=== PATIENT | male | born 1965 | race Two or more races ===

== ENCOUNTER → 2020-05-06 09:09 | Outpatient (BNVA) | payer OTHER, SELFPAY | PROVIDERS: PCP Internal Medicine; Visit Provider Internal Medicine Gastroenterology | DX: K21.9 Gastro-esophageal reflux disease without esophagitis (principal) | CPT/HCPCS: Q3014 ==

== ENCOUNTER → 2020-07-15 09:19 | Outpatient (BNVA) | payer OTHER, SELFPAY | PROVIDERS: PCP Internal Medicine; Visit Provider Internal Medicine Gastroenterology | DX: Z76.89 Persons encountering health services in other specified circumstances (principal) | CPT/HCPCS: Q3014 ==

== ENCOUNTER 2020-07-23 09:21 | Outpatient (REF) | payer OTHER, SELFPAY | END 2020-07-23 09:22 | disposition home or self-care (01) | LOC: HO.LAB 09:21 | PROVIDERS: Visit Provider Internal Medicine | DX: Z20.822 Contact with and (suspected) exposure to COVID-19 (principal) | CPT/HCPCS: 36415; C9803; U0003; U0005 ==

== ENCOUNTER 2020-08-24 09:29 | Outpatient (REF) | payer OTHER, SELFPAY | END 2020-08-24 09:30 | disposition home or self-care (01) | LOC: HO.LAB 09:29 | PROVIDERS: Visit Provider Internal Medicine | DX: Z20.822 Contact with and (suspected) exposure to COVID-19 (principal) | CPT/HCPCS: 36415; C9803; U0003; U0005 ==

== ENCOUNTER 2020-08-31 17:54 | Emergency (ER) | payer OTHER, SELFPAY ==
--- NOTE | ~2020-08-31 | CT_ITS ---
EXAMINATION: CT ABDOMEN AND PELVIS WITH CONTRAST CLINICAL INFORMATION: Left lower quadrant pain. COMPARISON: 09/18/2006. TECHNIQUE: Contiguous axial thin section helical images of the abdomen and pelvis were performed following the administration of 75 mL of intravenous Omnipaque 350. The data set was reformatted in the coronal and sagittal planes and reviewed on an independent workstation. DLP: 655 mGy-cm. FINDINGS: The visualized lung bases are clear. The visualized portions of the heart are unremarkable. The liver is of normal size and attenuation without focal lesions nor intrahepatic biliary ductal dilation. A normal gallbladder is identified. There is no wall thickening or discernible pericholecystic fluid. The spleen, pancreas, adrenal glands are unremarkable. Both kidneys are of normal size and attenuation without hydronephrosis or nephrolithiasis. Following the administration of IV contrast, prompt symmetric nephrograms are displayed. There is no abdominal free fluid. There is neither mesenteric nor retroperitoneal lymphadenopathy. There are scattered sigmoid diverticula without evidence of diverticulitis; otherwise, unremarkable unopacified loops of small and large bowel are identified. A normal appendix is present. There is no pelvic free fluid. The urinary bladder is unremarkable. There is neither pelvic nor inguinal lymphadenopathy. Bone windows: Neither sclerotic nor lytic bone lesions are identified. CT/CT abdomen pelvis w con IMPRESSION: No acute abdominal or pelvic inflammatory or infectious processes. Automated exposure control (Care Dose) Adjustment of the mA and/or kv according to patient size (this includes techniques or standardized protocols for targeted exams where dose is matched to indication / reason for exam; i.e. extremities or head).
[2020-08-31 18:43] VITALS: BP 181/112; PULSE 93; RESP 18; TEMP 37.2; O2SAT 98; BMI 30.1
[2020-08-31 21:25] LABS: MANUAL DIFF FLAG NO
[2020-08-31 21:29] LABS: Basophils Percent Auto 0.4 % (0-2); Eosinophils Absolute Auto 0.3 X10*3/uL (0.0-0.4); Eosinophils Percent Auto 2.7 % (0-4); Hematocrit 47.5 % (42-52); Hemoglobin 16.6 g/dl (14.0-18.0); Imm Gran Abs Auto 0.07 X10*3/uL (0.00-0.03); Imm Gran Pct Auto 0.6 % (0.0-0.4); Lymphocytes Absolute Auto 2.4 X10*3/uL (1.2-4.9); Lymphocytes Percent Auto 22.2 % (20-40); Mean Corpuscular HGB Conc 34.9 g/dl (31.0-36.0); Mean Corpuscular Hemoglobin 29.9 pg (27.0-33.0); Mean Corpuscular Volume 85.4 fL (80-98); Mean Platelet Volume 10.1 fL (9.4-12.4); Monocytes Absolute Auto 0.4 X10*3/uL (0.1-1.2); Neutrophils Absolute Auto 7.7 X10*3/uL (2.0-8.3); Neutrophils Percent Auto 70.1 % (45-73); Platelet Count 269 X10*3/uL (160-400); Red Blood Count 5.56 X10*6/uL (4.60-5.80); Red Cell Distribution Width 12.2 % (11.0-16.0); White Blood Count 10.9 X10*3/uL (4.8-10.8)
[2020-08-31 21:45] LABS: Alanine Aminotransferase 55 U/L (0-40); Albumin Level 4.4 g/dL (3.5-5.0); Alkaline Phosphatase 126 U/L (39-117); Anion Gap 17 (12-20); Aspartate Amino Transferase 26 U/L (5-37); Bilirubin Total 0.6 mg/dL (0.0-1.0); Blood Urea Nitrogen 18 mg/dL (9-16); Carbon Dioxide 20 mmol/L (22-29); Chloride 107 mmol/L (96-108); Creatinine Clr Calc Pharmacy 85.1; Estimated Glomerular Filt Rate > 60; Glucose Random 125 mg/dL (60-115); Potassium 4.1 mmol/L (3.3-5.1); Sodium 140 mmol/L (135-145); Total Protein 7.3 g/dL (6.5-8.0)
--- NOTE | 2020-08-31 23:49 | ED_ITS ---
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 He denies any accidents in his underwear and denies any urinary symptoms, fevers, chills, nausea, vomiting. Patient denies any anticoagulation. Related Data Previous Rx's Medication Instructions Recorded omeprazole 20 mg capsule,delayed 20 mg PO DAILY 30 Days #30 cap MDD 05/06/20 release 2 lisinopril 20 mg tablet 20 mg PO DAILY #90 tab 07/20/20 Allergies Allergy/AdvReac Type Severity Reaction Status Date / Time No Known Allergies Allergy Unverified 02/20/20 15:57 Review of Systems Review of Systems Pertinent positives and negatives as stated in HPI 10 point review of symptoms is otherwise negative. Physical Exam Vital Signs: Vital Signs: Last Vital Signs Temp 98.1 F 09/01/20 00:00 Pulse 79 09/01/20 00:00 Resp 16 09/01/20 00:00 BP 159/97 H 09/01/20 00:00 Pulse Ox 95 09/01/20 00:00 Body Mass Index 30.1 VITAL SIGNS: Reviewed. GENERAL: Well developed, well nourished, in no acute distress. HEAD: Normocephalic/atraumatic, EYES: PERRLA, EOMI intact without pain, no nystagmus/pallor OROPHARYNX: no oral lesions noted, posterior pharynx clear NECK: Supple, no adenopathy LUNGS: Normal breath sounds. No adventitious sounds or accessory muscle use. SpO2<98> CARDIOVASCULAR: Regular rate and rhythm without noted murmurs ABDOMEN: Soft, tenderness at left lower quadrant without rebound, non-distended with bowel sounds. NEUROLOGIC: Alert and oriented x 4. Course Course Course Narrative: This is a 55-year-old male with history and clinical presentation consistent with likely hemorrhoidal bleeding and possible component of diverticulitis. On review of all investigations patient does not have evidence of anemia, stool is guaiac negative, and CT scan is negative for any acute findings. All results and findings were discussed with patient at bedside and he was discharged home in stable condition with instructions to follow-up with his primary care provider. MDM - Abdominal Pain Lab Data Result diagrams: 08/31/20 21:17 08/31/20 21:17 Labs: Lab Results 08/31/20 08/31/20 08/31/20 Range/Units 21:17 21:17 21:17 WBC 10.9 H (4.8-10.8) X10*3/uL RBC 5.56 (4.60-5.80) X10*6/uL Hgb 16.6 (14.0-18.0) g/dl Hct 47.5 (42-52) % MCV 85.4 (80-98) fL MCH 29.9 (27.0-33.0) pg MCHC 34.9 (31.0-36.0) g/dl RDW 12.2 (11.0-16.0) % Plt Count 269 (160-400) X10*3/uL MPV 10.1 (9.4-12.4) fL Immature Gran % (Auto) 0.6 H (0.0-0.4) % Neut % (Auto) 70.1 (45-73) % Lymph % (Auto) 22.2 (20-40) % Tripp % (Auto) 4.0 (2-11) % Eos % (Auto) 2.7 (0-4) % Baso % (Auto) 0.4 (0-2) % Lymph # (Auto) 2.4 (1.2-4.9) X10*3/uL Tripp # (Auto) 0.4 (0.1-1.2) X10*3/uL Eos # (Auto) 0.3 (0.0-0.4) X10*3/uL Baso # (Auto) 0.0 (0.0-0.2) X10*3/uL Abs Immat Gran (auto) 0.07 H (0.00-0.03) X10*3/uL Absolute Neuts (auto) 7.7 (2.0-8.3) X10*3/uL Absolute Nucleated RBC 0.000 (0.0-0.012) X10*3/uL Nucleated RBC % (auto) 0.0 (0.0-0.2) /100WBC Hold Purple Top SEE NOTE Hold Blue Top SEE NOTE Sodium (135-145) mmol/L Potassium (3.3-5.1) mmol/L Chloride (96-108) mmol/L Carbon Dioxide (22-29) mmol/L Anion Gap (12-20) BUN (9-16) mg/dL Creatinine (0.5-1.4) mg/dL Estim Creat Clear Calc Estimated GFR Random Glucose (60-115) mg/dL Calcium (8.4-10.2) mg/dL Total Bilirubin (0.0-1.0) mg/dL AST (5-37) U/L ALT (0-40) U/L Alkaline Phosphatase (39-117) U/L Total Protein (6.5-8.0) g/dL Albumin (3.5-5.0) g/dL Stool Occult Blood (NEGATIVE) 08/31/20 09/01/20 Range/Units 21:17 00:11 WBC (4.8-10.8) X10*3/uL RBC (4.60-5.80) X10*6/uL Hgb (14.0-18.0) g/dl Hct (42-52) % MCV (80-98) fL MCH (27.0-33.0) pg MCHC (31.0-36.0) g/dl RDW (11.0-16.0) % Plt Count (160-400) X10*3/uL MPV (9.4-12.4) fL Immature Gran % (Auto) (0.0-0.4) % Neut % (Auto) (45-73) % Lymph % (Auto) (20-40) % Tripp % (Auto) (2-11) % Eos % (Auto) (0-4) % Baso % (Auto) (0-2) % Lymph # (Auto) (1.2-4.9) X10*3/uL Tripp # (Auto) (0.1-1.2) X10*3/uL Eos # (Auto) (0.0-0.4) X10*3/uL Baso # (Auto) (0.0-0.2) X10*3/uL Abs Immat Gran (auto) (0.00-0.03) X10*3/uL Absolute Neuts (auto) (2.0-8.3) X10*3/uL Absolute Nucleated RBC (0.0-0.012) X10*3/uL Nucleated RBC % (auto) (0.0-0.2) /100WBC Hold Purple Top Hold Blue Top Sodium 140 (135-145) mmol/L Potassium 4.1 (3.3-5.1) mmol/L Chloride 107 (96-108) mmol/L Carbon Dioxide 20 L (22-29) mmol/L Anion Gap 17 (12-20) BUN 18 H (9-16) mg/dL Creatinine 0.88 (0.5-1.4) mg/dL Estim Creat Clear Calc 85.1 Estimated GFR > 60 Random Glucose 125 H (60-115) mg/dL Calcium 9.0 (8.4-10.2) mg/dL Total Bilirubin 0.6 (0.0-1.0) mg/dL AST 26 (5-37) U/L ALT 55 H (0-40) U/L Alkaline Phosphatase 126 H (39-117) U/L Total Protein 7.3 (6.5-8.0) g/dL Albumin 4.4 (3.5-5.0) g/dL Stool Occult Blood NEGATIVE (NEGATIVE) Discharge Plan Discharge Clinical Impression: Rectal bleeding Abdominal pain Qualifiers: Abdominal location: left lower quadrant Qualified Code(s): R10.32 - Left lower quadrant pain Hemorrhoids Qualifiers: Hemorrhoid type: unspecified Qualified Code(s): K64.9 - Unspecified hemorrhoids Patient Disposition: Home, Self-Care Instructions: Abdominal Pain (ED), Hemorrhoids (ED), Rectal Bleeding (ED) Additional Instructions: No dude en volver al servicio de urgencias por cualquier empeoramiento lesly de danielle s?ntomas. Supriya un seguimiento con kulkarni m?dico dentro de los pr?ximos 1-2 d?as para mazin reevaluaci?n y discusi?n para mazin posible derivaci?n de gastroenterolog?a. Prescriptions: No Action lisinopril 20 mg tablet 20 mg PO DAILY Qty: 90 RF: 8 omeprazole 20 mg capsule,delayed release(DR/EC) 20 mg PO DAILY MDD 2 30 Days Qty: 30 RF: 5 Referrals: Reed Fung MD [Primary Care Provider] - 2 days (Re-evaluation and out patient management for suspected hemorrhoidal bleeding, workup in the emergency department was otherwise negative.) Print Language: Bel[place]ian [facility] Past Medical History Source: nursing notes reviewed Medical History Alopecia COVID-19 GERD (gastroesophageal reflux disease) Hypertension Rotator cuff (capsule) sprain Surgical History History of back surgery History of colonoscopy History of esophagogastroduodenoscopy (EGD) Family History Family History Father Family history of high blood pressure Hx of type 1 diabetes mellitus Mother Hx of multiple sclerosis Family history of high blood pressure Social History Social History Household Members: Significant Other Housing: House Alcohol intake: never Smoking Status: Never smoker Advance Directives: No Current occupational status: disabled
[2020-09-01] VITALS: BP 159/97; PULSE 79; RESP 16; TEMP 36.7; O2SAT 95
--- NOTE | 2020-09-01 00:27 | PC.NURSE ---
20g IV access established in right AC. Pt is COVID+ as of 08/24/20.
[2020-09-01 00:30] LABS: OBS Int Ctl Valid YES; OBS1 NEGATIVE (NEGATIVE)
[2020-09-01] MEDS: iohexoL 350 MG/ML 75 ML INFUS..BTL IV (00:47)
[2020-09-01] MEDS: 0.9 % Sodium Chloride 1,000 ML 999 ML IV (02:02)
[2020-09-01 02:26] LABS: Glucose Urine UA NEG (NEG); Leukocyte Esterase Urine NEG (NEG); Nitrite Urine NEG (NEG); Urine Blood NEG (NEG); Urine Ketones NEG (NEG); Urine Protein NEG (NEG-TRACE)
[2020-09-01 02:27] LABS: Appearance Urine CLEAR; Color Urine STRAW; UACC Culture Trigger NO
== END 2020-09-01 03:49 | disposition home or self-care (01) ==
PROVIDERS: Emergency Provider Student in an Organized Health Care Education/Training Program; PCP Internal Medicine
DX: R10.32 Left lower quadrant pain (principal); K62.5 Hemorrhage of anus and rectum; K64.9 Unspecified hemorrhoids
CPT/HCPCS: 36415; 74177; 80053; 81003; 82272; 85025; 96360; 99283; 99284; Q9967

== ENCOUNTER 2021-07-05 14:28 | Emergency (ER) | payer OTHER, SELFPAY ==
--- NOTE | ~2021-07-05 | XR_ITS ---
EXAMINATION: XR RIBS, LEFT CLINICAL INFORMATION: Fall. Question of sixth rib fracture. COMPARISON: None TECHNIQUE: 3 views of the left ribs were obtained. FINDINGS: There is no displaced rib fracture. Ribs are intact. No airspace disease or pleural effusion or pneumothorax involving the left hemithorax XR/XR ribs LT 2V IMPRESSION: No acute abnormality of left ribs.
--- NOTE | ~2021-07-05 | XR_ITS ---
EXAMINATION: XR CHEST CLINICAL INFORMATION: Chest pain COMPARISON: Previous chest x-ray September 2018 TECHNIQUE: 2 views of the chest were obtained. FINDINGS: The cardiac and mediastinal contours are normal. There is bilateral hilar lymphadenopathy. This is a new finding compared to September 2018 exam. The lungs are clear. There is no pleural effusion. There are degenerative changes of the spine. XR/XR chest 2V IMPRESSION: Bilateral hilar lymphadenopathy. This is a new finding compared to previous chest x-ray from 2019.
[2021-07-05 15:19] VITALS: BP 160/101; PULSE 116; RESP 18; TEMP 36.6; O2SAT 96; BMI 31.8
--- NOTE | 2021-07-05 15:23 | ECG_ITS ---
Test Reason : CP Blood Pressure : / mmHG Vent. Rate : 110 BPM Atrial Rate : 110 BPM P-R Int : 130 ms QRS Dur : 084 ms QT Int : 328 ms P-R-T Axes : 047 077 035 degrees QTc Int : 443 ms Sinus tachycardia Otherwise normal ECG When compared with ECG of 26-JUN-2017 22:50, No significant change was found Referred By: Generic ED Physician Electronically Signed By:CINDY VELASCO
--- NOTE | 2021-07-05 19:45 | ED_ITS ---
HPI - Chest Pain General Chief Complaint: Chest Pain Stated Complaint: fall Time Seen by Provider: 07/05/21 19:45 Source: patient Mode of arrival: ambulatory Limitations: no limitations History of Present Illness HPI narrative: Ability patient had a mechanical fall 3 weeks ago landed on his chest with fist in between since then pain increases on deep inspiration no shortness of breath no cough no other injury Related Data Previous Rx's Medication Instructions Recorded omeprazole 20 mg capsule,delayed 20 mg PO DAILY 30 Days #30 cap MDD 05/06/20 release 2 lisinopril 20 mg tablet 20 mg PO DAILY #90 tab 07/20/20 Allergies Allergy/AdvReac Type Severity Reaction Status Date / Time No Known Allergies Allergy Verified 05/18/21 13:32 Review of Systems Verdana 4l Review of Systems: Yes all other systems are reviewed and Verdana 4d are negative [facility] Past Medical History Medical History Alopecia COVID-19 GERD (gastroesophageal reflux disease) Hypertension Hypertension Rotator cuff (capsule) sprain Surgical History History of back surgery History of colonoscopy History of esophagogastroduodenoscopy (EGD) Family History Family History Father Family history of high blood pressure Hx of type 1 diabetes mellitus Mother Hx of multiple sclerosis Family history of high blood pressure Social History Social History Household Members: Significant Other Housing: House Alcohol intake: never Patient Tobacco Use Status: Never used Tobacco e-Cigarette/Vaping Use: Never Used Second Hand Smoke Exposure: No Advance Directives: No Advance Directives Information Provided: No Current occupational status: disabled Physical Exam Verdana 4l Vital Signs: Verdana 4d Verdana 4d Vital Signs: Verdana 4d Verdana 4Bd Last Vital Signs Verdana 4d 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 Local tenderness on the 6th rib in the front Resp: Effort & Inspection: normal respiratory effort and able to speak in complete sentences Auscultation: clear to auscultation bilaterally Cardio: Palpation: normal PMI Rate: regular rate Rhythm: regular rhythm Heart sounds: S1 normal heart sound present and S2 normal heart sound present GI: Inspection: Yes normal to inspection Palpation (GI): Soft to palpation and nontender Neuro: General: patient oriented x3 Discharge Plan Discharge Clinical Impression: Fracture of rib Patient Disposition: Home, Self-Care Prescriptions: No Action lisinopril 20 mg tablet 20 mg PO DAILY Qty: 90 8RF omeprazole 20 mg capsule,delayed release(DR/EC) 20 mg PO DAILY MDD 2 30 Days Qty: 30 5RF
[2021-07-05 19:46] VITALS: BP 162/100; PULSE 98; RESP 18; TEMP 37; O2SAT 97
[2021-07-05] MEDS: Ketorolac Tromethamine 30 MG/ML VIAL IM (20:20)
== END 2021-07-05 21:12 | disposition home or self-care (01) ==
PROVIDERS: Emergency Provider Internal Medicine; PCP Internal Medicine
DX: S22.32XA Fracture of one rib, left side, initial encounter for closed fracture (principal); W01.198A Fall on same level from slipping, tripping and stumbling with subsequent striking against other object, initial encounter; Y93.9 Activity, unspecified; Y92.9 Unspecified place or not applicable; Y99.9 Unspecified external cause status
CPT/HCPCS: 71046; 71100; 93005; 96372; 99284; J1885

== ENCOUNTER 2021-07-21 10:48 | Outpatient (REF) | payer OTHER, SELFPAY ==
[2021-07-21 11:58] LABS: MANUAL DIFF FLAG NO
[2021-07-21 12:12] LABS: Basophils Percent Auto 0.6 % (0-2); Eosinophils Absolute Auto 0.3 X10*3/uL (0.0-0.4); Eosinophils Percent Auto 4.7 % (0-4); Hematocrit 49.7 % (42.0-52.0); Hemoglobin 16.9 g/dl (14.0-18.0); Imm Gran Abs Auto 0.04 X10*3/uL (0.00-0.03); Imm Gran Pct Auto 0.6 % (0.0-0.4); Lymphocytes Absolute Auto 1.5 X10*3/uL (1.2-4.9); Lymphocytes Percent Auto 22.5 % (20-40); Mean Corpuscular Hemoglobin 29.6 pg (27.0-33.0); Mean Corpuscular Volume 87.2 fL (80.0-98.0); Mean Platelet Volume 9.8 fL (9.4-12.4); Monocytes Absolute Auto 0.5 X10*3/uL (0.1-1.2); Monocytes Percent Auto 7.9 % (2-11); Neutrophils Absolute Auto 4.2 x10*3/uL (2.0-8.3); Neutrophils Percent Auto 63.7 % (45-73); Platelet Count 273 X10*3/uL (160-400); Red Cell Distribution Width 12.8 % (11.0-16.0); White Blood Count 6.6 X10*3/uL (4.8-10.8)
[2021-07-21 12:43] LABS: Alanine Aminotransferase 23 U/L (0-40); Albumin Level 4.6 g/dL (3.5-5.0); Alkaline Phosphatase 129 U/L (39-117); Anion Gap 13 (12-20); Aspartate Amino Transferase 23 U/L (5-37); Bilirubin Total 0.6 mg/dL (0.0-1.0); Blood Urea Nitrogen 15 mg/dL (9-16); Calcium 10.4 mg/dL (8.4-10.2); Carbon Dioxide 28 mmol/L (22-29); Chloride 104 mmol/L (96-108); Cholesterol 220 mg/dL; Estimated Glomerular Filt Rate > 60; Glucose Fasting 100 mg/dL (60-99); HDL Cholesterol 42 mg/dL; LDL Cholesterol Calculated 142 mg/dl; Potassium 4.9 mmol/L (3.3-5.1); Sodium 140 mmol/L (135-145); Triglycerides 180 mg/dL
[2021-07-21 13:04] LABS: TSH reflex Free T4 0.87 uIU/mL (0.32-4.0); Thyroid Stimulating Hormone 0.87 uIU/mL (0.32-4.0)
[2021-07-21 13:20] LABS: Folate 4.5 ng/mL (> or = 4.0); Vitamin B12 256 pg/mL (200-900)
[2021-07-21 14:00] LABS: H Pylori Breath Test Negative (Negative)
[2021-07-26 15:02] LABS: Vitamin D 25-OH, D2 <4 ng/mL; Vitamin D 25-OH, D3 19 ng/mL; Vitamin D 25-OH, Total 19 ng/mL (30-100)
== END 2021-07-21 10:49 | disposition home or self-care (01) ==
LOC: HO.LAB 10:48
PROVIDERS: PCP Internal Medicine; Referring Provider Internal Medicine; Visit Provider Nurse Practitioner Family
DX: Z00.00 Encounter for general adult medical examination without abnormal findings (principal); Z13.0 Encounter for screening for diseases of the blood and blood-forming organs and certain disorders involving the immune mechanism; K21.9 Gastro-esophageal reflux disease without esophagitis; K59.01 Slow transit constipation; R14.0 Abdominal distension (gaseous); K64.9 Unspecified hemorrhoids; E55.9 Vitamin D deficiency, unspecified; R19.7 Diarrhea, unspecified
CPT/HCPCS: 36415; 80053; 80061; 82306; 82607; 82746; 83013; 84443; 85025; 99212

== ENCOUNTER 2021-07-28 08:36 | Outpatient (REF) | payer OTHER, SELFPAY ==
--- NOTE | 2021-07-28 08:39 | EMG_ITS ---
This is a 56-year-old man with history of bilateral hand pain and numbness for several years with the right being worse than the left. PHYSICAL EXAMINATION: On examination, he is alert and oriented with normal intellectual functions. His cranial nerves II through XII are normal. There is no Tinel or Phalen sign. IMPRESSION: Carpal tunnel syndrome. Nerve conduction EMG study: Mild carpal tunnel syndrome bilaterally, slightly worse in the right. Normal EMG of the right C5-T1 innervated muscles. MD ABEL Baldwin/FRANCINE / [id number]
== END 2021-07-28 08:37 | disposition home or self-care (01) ==
LOC: HO.NEURO 08:36
PROVIDERS: PCP Internal Medicine; Visit Provider Internal Medicine
DX: G56.00 Carpal tunnel syndrome, unspecified upper limb (principal)
CPT/HCPCS: 95885; 95913

== ENCOUNTER → 2021-10-13 09:16 | Outpatient (BNVA) | payer OTHER, SELFPAY | PROVIDERS: PCP Internal Medicine; Referring Provider Internal Medicine; Visit Provider Nurse Practitioner Family | DX: K21.9 Gastro-esophageal reflux disease without esophagitis (principal); K58.1 Irritable bowel syndrome with constipation | CPT/HCPCS: 99212 ==

== ENCOUNTER 2021-12-09 07:25 | Outpatient (REF) | payer OTHER, SELFPAY ==
[2021-12-09 09:28] LABS: Cholesterol 215 mg/dL; HDL Cholesterol 49 mg/dL; LDL Cholesterol Calculated 151 mg/dl; Triglycerides 75 mg/dL
== END 2021-12-09 07:26 | disposition home or self-care (01) ==
LOC: HO.LAB 07:25
PROVIDERS: PCP Internal Medicine; Visit Provider Internal Medicine
DX: Z00.00 Encounter for general adult medical examination without abnormal findings (principal); Z13.220 Encounter for screening for lipoid disorders
CPT/HCPCS: 36415; 80061

== ENCOUNTER → 2022-04-14 08:47 | Outpatient (BNVA) | payer OTHER, SELFPAY | PROVIDERS: PCP Internal Medicine; Visit Provider Nurse Practitioner Family | DX: K58.9 Irritable bowel syndrome, unspecified (principal); K21.9 Gastro-esophageal reflux disease without esophagitis | CPT/HCPCS: 99212 ==

== ENCOUNTER 2022-06-13 08:50 | Outpatient (REF) | payer OTHER, SELFPAY ==
--- NOTE | ~2022-06-13 | XR_ITS ---
EXAMINATION: XR SHOULDER, LEFT CLINICAL INFORMATION: Left shoulder pain. COMPARISON: 12/19/2017 chest radiographs. TECHNIQUE: Views of the left shoulder. FINDINGS: Mild left acromioclavicular degenerative joint changes are seen. There is no acute fracture or dislocation. The left glenohumeral joint is unremarkable. The visualized left ribs are intact. The soft tissues are unremarkable. XR/XR shoulder LT min 2V IMPRESSION: Mild left acromioclavicular degenerative joint changes. No acute fracture.
--- NOTE | ~2022-06-13 | XR_ITS ---
EXAMINATION: XR SHOULDER, RIGHT CLINICAL INFORMATION: Right shoulder COMPARISON: 12/19/2017 chest radiographs. TECHNIQUE: Views of the left shoulder. FINDINGS: Mild left acromioclavicular degenerative joint changes are seen. There is no acute fracture or dislocation. The left glenohumeral joint is unremarkable. The visualized left ribs are intact. The soft tissues are unremarkable. XR/XR shoulder RT min 2V IMPRESSION: Mild right acromioclavicular degenerative joint changes. No acute fracture.
== END 2022-06-13 08:51 | disposition home or self-care (01) ==
LOC: HO.HOSX 08:50
PROVIDERS: Visit Provider Orthopaedic Surgery
DX: M25.311 Other instability, right shoulder (principal); M25.512 Pain in left shoulder
CPT/HCPCS: 20610; 73030; 99202; J1100

== ENCOUNTER 2022-06-29 08:35 | Outpatient (REF) | payer OTHER, SELFPAY ==
--- NOTE | ~2022-06-29 | MR_ITS ---
EXAMINATION: MR SHOULDER WITHOUT CONTRAST, RIGHT CLINICAL INFORMATION: Instability COMPARISON: X-ray 06/13/2022 TECHNIQUE: MRI of the shoulder without contrast was performed on a high-field scanner. FINDINGS: ROTATOR CUFF: There is a tear of the supraspinatus measuring 3 x 3.4 cm. (AP x ML) there is a combination of high-grade and full-thickness tearing. Moderate infraspinatus tendinosis. Linear intrasubstance tear in the proximal tendon/myotendinous region measuring 1.2 x 0.6 cm (AP x ML). Teres minor muscle atrophy. There is a fatty infiltration of the deltoid muscle. BICEPS: Moderate biceps tendinosis and partial tearing. CORACOACROMIAL ARCH: The undersurface of the acromion is curved with lateral downsloping, mild subacromial spurring.. Mild-moderate acromioclavicular arthritis.. LABRUM/CAPSULE: Superior labral degeneration, with the T2 bright signal raising concern for associated tear. Posterosuperior labral degenerative fraying/tear. GLENOHUMERAL JOINT/MARROW: No fracture. Degenerative spurring in the greater tuberosity. Foci of mild humeral head cartilage thinning suggesting mild arthritis. Small effusion, communicating with the subacromial subdeltoid space. MR/MR shoulder RT wo con IMPRESSION: 1. Supraspinatus tear measuring 3 x 3.4 cm. Tear is a combination of high-grade and full-thickness tearing. 2. Moderate infraspinatus tendinosis. 1.2 x 0.6 cm intrasubstance tear. 3. Moderate biceps tendinosis and partial tearing. 4. Superior labral degeneration with possible tear.. Posterosuperior labral degenerative fraying/tear. 5. Mild glenohumeral joint arthritis. Small effusion. 6. Mild-moderate acromioclavicular arthritis.
--- NOTE | ~2022-06-29 | XR_ITS ---
EXAMINATION: XR PRE-MRI SCREENING CLINICAL INFORMATION: Prior to MRI. Question foreign body. COMPARISON: None TECHNIQUE: Frontal view of the pelvis. FINDINGS: No fracture or dislocation. Alignment maintained of the hips. Subchondral sclerosis of both hips. The sacroiliac joints and pubic symphysis are well aligned. Normal bowel gas pattern. No unexpected radiopaque foreign body. Calcification noted along the penis. XR/XR pre mri screening IMPRESSION: 1. No unexpected radiopaque foreign body. 2. Mild degenerative changes of the hips.
== END 2022-06-29 08:36 | disposition home or self-care (01) ==
LOC: HO.MRI 08:35
PROVIDERS: PCP Internal Medicine; Visit Provider Orthopaedic Surgery
DX: M25.311 Other instability, right shoulder (principal)
CPT/HCPCS: 73221

== ENCOUNTER → 2022-07-21 08:57 | Outpatient (BNVA) | payer OTHER, SELFPAY | PROVIDERS: PCP Internal Medicine; Visit Provider Orthopaedic Surgery | DX: M75.101 Unspecified rotator cuff tear or rupture of right shoulder, not specified as traumatic (principal) | CPT/HCPCS: 99212 ==

== ENCOUNTER 2022-07-24 14:33 | Emergency (ER) | payer OTHER, SELFPAY ==
--- NOTE | ~2022-07-24 | XR_ITS ---
EXAMINATION: XR CHEST CLINICAL INFORMATION: Reason for Exam cough, sob COMPARISON: Chest radiograph 07/05/2021 TECHNIQUE: 2 views of the chest FINDINGS: Streaky left basilar airspace opacities likely reflecting atelectasis. No pneumothorax or pleural effusion. Normal cardiomediastinal silhouette. XR/XR chest 2V IMPRESSION: Streaky left basilar airspace opacities likely reflecting atelectasis.
[2022-07-24 15:06] VITALS: BP 172/107; PULSE 112; RESP 20; TEMP 36.9; O2SAT 95; BMI 30.9
--- NOTE | 2022-07-24 15:13 | ECG_ITS ---
Test Reason : SOB Blood Pressure : / mmHG Vent. Rate : 118 BPM Atrial Rate : 118 BPM P-R Int : 130 ms QRS Dur : 082 ms QT Int : 312 ms P-R-T Axes : 057 073 049 degrees QTc Int : 437 ms Sinus tachycardia Otherwise normal ECG When compared with ECG of 05-JUL-2021 15:22, No significant change was found Referred By: Araceli Martines Electronically Signed By:CINDY VELASCO
[2022-07-24 15:35] LABS: MANUAL DIFF FLAG NO
[2022-07-24 15:39] LABS: Basophils Percent Auto 0.3 % (0-2); Eosinophils Absolute Auto 0.3 X10*3/uL (0.0-0.4); Eosinophils Percent Auto 3.4 % (0-4); Hematocrit 48.6 % (42.0-52.0); Hemoglobin 16.9 g/dl (14.0-18.0); Imm Gran Abs Auto 0.03 X10*3/uL (0.00-0.03); Imm Gran Pct Auto 0.3 % (0.0-0.4); Lymphocytes Percent Auto 10.5 % (20-40); Mean Corpuscular HGB Conc 34.8 g/dl (31.0-36.0); Mean Corpuscular Hemoglobin 30.2 pg (27.0-33.0); Mean Corpuscular Volume 86.8 fL (80.0-98.0); Mean Platelet Volume 9.6 fL (9.4-12.4); Monocytes Absolute Auto 0.4 X10*3/uL (0.1-1.2); Monocytes Percent Auto 4.3 % (2-11); Neutrophils Absolute Auto 7.5 x10*3/uL (2.0-8.3); Neutrophils Percent Auto 81.2 % (45-73); Platelet Count 225 X10*3/uL (160-400); Red Cell Distribution Width 11.9 % (11.0-16.0); White Blood Count 9.2 X10*3/uL (4.8-10.8)
[2022-07-24 16:03] LABS: Alanine Aminotransferase 24 U/L (0-40); Albumin Level 4.5 g/dL (3.5-5.0); Alkaline Phosphatase 117 U/L (39-117); Anion Gap 13 (12-20); Aspartate Amino Transferase 19 U/L (5-37); Bilirubin Direct 0.2 mg/dL (0.0-0.5); Bilirubin Total 0.9 mg/dL (0.0-1.0); Blood Urea Nitrogen 13 mg/dL (9-16); Calcium 9.4 mg/dL (8.4-10.2); Carbon Dioxide 25 mmol/L (22-29); Chloride 106 mmol/L (96-108); Creatinine Clr Calc Pharmacy 87.2; Estimated Glomerular Filt Rate > 60; Glucose Random 135 mg/dL (60-115); Magnesium 1.8 mg/dL (1.6-2.6); Sodium 140 mmol/L (135-145); Total Protein 7.3 g/dL (6.5-8.0)
[2022-07-24 16:04] LABS: COVID-19 Test Negative (Negative); IDNOW Serial# 16C4AD1C
[2022-07-24 16:05] LABS: IDNOW Serial# BCCEAD1C; Influenza A Negative (Negative); Influenza B2 Negative (Negative)
[2022-07-24 16:10] LABS: Troponin-I High Sensitivity 3.5 ng/L (<3.5-35.0)
[2022-07-24 16:53] VITALS: PULSE 118; RESP 24; TEMP 37.5; O2SAT 96
--- NOTE | 2022-07-24 17:10 | ED.URI ---
HPI - URI/Sore Throat General Chief Complaint: Upper Respiratory Symptoms Stated Complaint: asthma Time Seen by Provider: 07/24/22 16:59 Source: patient Mode of arrival: ambulatory Limitations: no limitations History of Present Illness HPI Narrative: 57-year-old male history of asthma presented with 1 day of shortness of breath and wheezing with coughing with yellow sputum, low-grade subjective fever, SOB, chest tightness. Symptoms started since yesterday, sick contacts, no recent travel. Patient is a former smoker with long standing history of asthma used his inhaler with no relief of his symptoms. Related Data Previous Rx's Medication Instructions Recorded oxycodone 5 mg tablet 5 mg PO Q6H PRN Pain, Moderate #20 07/05/21 tabs omeprazole 20 mg capsule,delayed 20 mg PO DAILY nocturnal gerd 30 07/21/21 release days #90 caps lisinopril 20 mg tablet 20 mg PO DAILY #90 tabs 08/18/21 cholecalciferol (vitamin D3) 50 50 mcg PO DAILY #90 caps 04/14/22 mcg (2,000 unit) capsule docusate sodium 100 mg capsule 100 mg PO BEDTIME #90 caps 04/14/22 hydrocortisone 2.5 % topical cream 1 appl SD BID-QID PRN hemorrhoids 04/14/22 with perineal applicator #30 grams (Proctosol HC) albuterol sulfate 90 mcg/actuation 1 inh inhalation QID PRN shortness 07/24/22 aerosol inhaler of breath or wheezing #8.5 grams azithromycin 250 mg tablet See Rx Instructions PO .COMPLEX #6 07/24/22 (Zithromax Z-Jakub) tabs prednisone 20 mg tablet 20 mg PO BID #10 tabs 07/24/22 Allergies Allergy/AdvReac Type Severity Reaction Status Date / Time No Known Allergies Allergy Verified 07/24/22 15:13 Review of Systems Review of Systems: All other systems are reviewed and are negative Constitutional: Reports as per HPI and Reports no additional constitutional complaints Eyes: Reports as per HPI and Reports no additional eye complaints Reports system reviewed and no additional complaints, except as documented Cardiovascular: Reports as per HPI and Reports no additional cardiovascular complaints Respiratory: Reports as per HPI and Reports no additional respiratory complaints Gastrointestinal: Reports as per HPI and Reports no additional gastrointestinal complaints Genitourinary: Reports no additional female genitourinary complaints Musculoskeletal: Reports no additional musculoskeletal complaints Skin/Breast: Reports system reviewed and no additional complaints, except as docu Psychiatric: Reports no additional psychiatric complaints Endocrine: Reports no additional endocrine complaints Hematologic/Lymphatic: Reports no additional hematologic/lymphatic complaints Allergic/Immunologic: Reports no additional allergic/immunologic complaints Reports system reviewed and no additional complaints, except as documented and Reports Abnormal speech present [facility] Past Medical History Medical History Alopecia COVID-19 GERD (gastroesophageal reflux disease) Hypertension Hypertension Rotator cuff (capsule) sprain Surgical History History of back surgery History of colonoscopy History of esophagogastroduodenoscopy (EGD) Family History Family History Father Family history of high blood pressure Hx of type 1 diabetes mellitus Mother Hx of multiple sclerosis Family history of high blood pressure Social History Social History Household Members: Significant Other Housing: House Alcohol intake: unknown Patient Tobacco Use Status: Never used Tobacco Smoked in Last 30 Days: No e-Cigarette/Vaping Use: Never Used Second Hand Smoke Exposure: No Advance Directives: No Advance Directives Information Provided: Yes service: No Current occupational status: disabled Current occupational exposures/hazards: No Cognitive needs: No Hearing needs: No Vision needs: Yes Physical Exam Vital Signs: Vital Signs: Last Vital Signs Temp 99.5 F 07/24/22 16:53 Pulse 111 H 07/24/22 17:31 Resp 18 07/24/22 17:31 BP 172/107 H 07/24/22 15:06 Pulse Ox 96 07/24/22 17:42 O2 Del Method 07/24/22 16:53 BMI result Body Mass Index 30.9 Vital signs have been reviewed as appeared to be correct. Blood pressure elevated. Heart rate elevated. Respiration rate elevated. Temperature normal. Oxygen saturation normal. Appearance: Alert. Oriented X3. No acute distress. Head: Normal external exam. Normocephalic. Atraumatic. No Farah signs noted. No raccoon eyes noted Eyes: PERRLA. EOMI. Conjunctiva and sclera normal. Eyelids normal. ENT: TM's Normal. Pharynx normal. Uvula midline. Moist mucous membranes. No trismus noted. No drooling noted. No muffled voice noted. Neck: Normal inspection. Neck supple. FROM. No adenopathy. Thyroid Normal. No meningeal signs. No neck mass noted. CVS: Normal heart rate and rhythm. Heart sound normal. No murmurs noted. Pulses normal throughout. Respiratory: No respiratory distress. Painless inspiration. Breath sounds normal. Prolonged expiration with expiratory wheezing and decreased breathing sounds bilaterally. Chest nontender. No accessory muscle usage noted or decreased air movement noted. Abdomen: Soft and nontender. Bowel sounds normal in all 4 quadrants. No distention noted. No organomegaly noted. No visible injury noted. Back: No CVA tenderness. Full range of motion noted. Skin: Skin warm and dry. Normal skin color. Normal skin turgor. No rashes/lesions/lacerations noted. Extremities: No lower extremity edema. Extremities exhibit normal range of motion. Extremities nontender. Neuro: Oriented X 3. Cranial nerve exam: II-XII are grossly intact No motor deficit. No sensory deficit. Reflexes normal. Course Course Course Narrative: Acute asthma exacerbation. X-ray show no pneumonia, patient is negative for COVID/inflow once the infection. Feels improved after bronchodilator and prednisone with Zithromax. Will discharge to follow-up with PCP on prednisone/Z-Jakub/albuterol. Tachycardic at discharge after using 1 hour long of albuterol patient is asymptomatic. Medications Administered Discontinued Medications Generic Name Dose Route Start Last Admin Trade Name Freq PRN Reason Stop Dose Admin Albuterol Sulfate 10 mg 07/24/22 17:08 07/24/22 17:27 Albuterol Sulfate (0.083%) 2.5 Mg/3 Ml Vial.Neb INHALE 07/24/22 17:09 10 mg ONCE ONE Administration Azithromycin 500 mg 07/24/22 17:08 07/24/22 17:40 Azithromycin 500 Mg Tablet PO 07/24/22 17:09 500 mg ONCE ONE Administration Prednisone 60 mg 07/24/22 17:08 07/24/22 17:40 Prednisone 20 Mg Tablet PO 07/24/22 17:09 60 mg ONCE ONE Administration Medical Decision Making Differential Diagnosis Differential Diagnoses: The differential diagnosis associated with the presentation includes (Asthma exacerbation, pneumonia, pneumothorax, viral upper respiratory infection, ACS, CHF.) Lab Data MDM Lab Attestation statement: I reviewed the patient's lab results. 07/24/22 15:29 07/24/22 15:29 Labs: Lab Results 07/24/22 07/24/22 07/24/22 Range/Units 15:28 15:28 15:29 WBC 9.2 (4.8-10.8) X10*3/uL RBC 5.60 (4.60-5.80) X10*6/uL Hgb 16.9 (14.0-18.0) g/dl Hct 48.6 (42.0-52.0) % MCV 86.8 (80.0-98.0) fL MCH 30.2 (27.0-33.0) pg MCHC 34.8 (31.0-36.0) g/dl RDW 11.9 (11.0-16.0) % Plt Count 225 (160-400) X10*3/uL MPV 9.6 (9.4-12.4) fL Immature Gran % (Auto) 0.3 (0.0-0.4) % Neut % (Auto) 81.2 H (45-73) % Lymph % (Auto) 10.5 L (20-40) % Craig % (Auto) 4.3 (2-11) % Eos % (Auto) 3.4 (0-4) % Baso % (Auto) 0.3 (0-2) % Lymph # (Auto) 1.0 L (1.2-4.9) X10*3/uL Craig # (Auto) 0.4 (0.1-1.2) X10*3/uL Eos # (Auto) 0.3 (0.0-0.4) X10*3/uL Baso # (Auto) 0.0 (0.0-0.2) X10*3/uL Abs Immat Gran (auto) 0.03 (0.00-0.03) X10*3/uL Absolute Neuts (auto) 7.5 (2.0-8.3) x10*3/uL Absolute Nucleated RBC 0.000 (0.0-0.012) X10*3/uL Nucleated RBC % (auto) 0.0 (0.0-0.2) /100WBC Sodium (135-145) mmol/L Potassium (3.3-5.1) mmol/L Chloride (96-108) mmol/L Carbon Dioxide (22-29) mmol/L Anion Gap (12-20) BUN (9-16) mg/dL Creatinine (0.5-1.4) mg/dL Estim Creat Clear Calc Estimated GFR Random Glucose (60-115) mg/dL Calcium (8.4-10.2) mg/dL Magnesium (1.6-2.6) mg/dL Total Bilirubin (0.0-1.0) mg/dL Direct Bilirubin (0.0-0.5) mg/dL AST (5-37) U/L ALT (0-40) U/L Alkaline Phosphatase (39-117) U/L Troponin I High Sens (<3.5-35.0) ng/L Total Protein (6.5-8.0) g/dL Albumin (3.5-5.0) g/dL COVID-19 (THU) Negative (Negative) COVID-19 Clin Com See Note Influenza Type A (DAMARIS) Negative (Negative) Influenza Type B (DAMARIS) Negative (Negative) Influenza A & B Note See Note 07/24/22 07/24/22 Range/Units 15:29 15:29 WBC (4.8-10.8) X10*3/uL RBC (4.60-5.80) X10*6/uL Hgb (14.0-18.0) g/dl Hct (42.0-52.0) % MCV (80.0-98.0) fL MCH (27.0-33.0) pg MCHC (31.0-36.0) g/dl RDW (11.0-16.0) % Plt Count (160-400) X10*3/uL MPV (9.4-12.4) fL Immature Gran % (Auto) (0.0-0.4) % Neut % (Auto) (45-73) % Lymph % (Auto) (20-40) % Craig % (Auto) (2-11) % Eos % (Auto) (0-4) % Baso % (Auto) (0-2) % Lymph # (Auto) (1.2-4.9) X10*3/uL Craig # (Auto) (0.1-1.2) X10*3/uL Eos # (Auto) (0.0-0.4) X10*3/uL Baso # (Auto) (0.0-0.2) X10*3/uL Abs Immat Gran (auto) (0.00-0.03) X10*3/uL Absolute Neuts (auto) (2.0-8.3) x10*3/uL Absolute Nucleated RBC (0.0-0.012) X10*3/uL Nucleated RBC % (auto) (0.0-0.2) /100WBC Sodium 140 (135-145) mmol/L Potassium 4.0 (3.3-5.1) mmol/L Chloride 106 (96-108) mmol/L Carbon Dioxide 25 (22-29) mmol/L Anion Gap 13 (12-20) BUN 13 (9-16) mg/dL Creatinine 0.85 (0.5-1.4) mg/dL Estim Creat Clear Calc 87.2 Estimated GFR > 60 Random Glucose 135 H (60-115) mg/dL Calcium 9.4 D (8.4-10.2) mg/dL Magnesium 1.8 (1.6-2.6) mg/dL Total Bilirubin 0.9 (0.0-1.0) mg/dL Direct Bilirubin 0.2 (0.0-0.5) mg/dL AST 19 (5-37) U/L ALT 24 (0-40) U/L Alkaline Phosphatase 117 (39-117) U/L Troponin I High Sens 3.5 (<3.5-35.0) ng/L Total Protein 7.3 (6.5-8.0) g/dL Albumin 4.5 (3.5-5.0) g/dL COVID-19 (THU) (Negative) COVID-19 Clin Com Influenza Type A (DAMARIS) (Negative) Influenza Type B (DAMARIS) (Negative) Influenza A & B Note Independent Interpretation I performed an independent interpretation of an: EKG (Sinus tachycardia at 118 beats per minute, normal intervals, normal axis deviation, no ST-T changes.) and Plain X-Ray (Chest: No acute intrathoracic pathology.) Radiology Impression Discussion of test interpretation with radiology: I have reviewed the radiologist's reading. Chronic Conditions Patient?s care impacted by: Other (Bronchial asthma.) Discharge Plan Discharge Clinical Impression: Acute asthma exacerbation Patient Disposition: Home, Self-Care Instructions: Bronchospasm (ED) Prescriptions: New prednisone 20 mg tablet 20 mg PO BID Qty: 10 0RF albuterol sulfate 90 mcg/actuation HFA aerosol inhaler 1 inh inhalation QID PRN (Reason: shortness of breath or wheezing) Qty: 8.5 0RF azithromycin [Zithromax Z-Jakub] 250 mg tablet See Rx Instructions .ROUTE .COMPLEX Qty: 6 0RF Rx Instructions: For 250 mg dose pack: take 500 mg today (day 1), then 250 mg for 4 days (days 2-5) No Action lisinopril 20 mg tablet 20 mg PO DAILY Qty: 90 8RF oxycodone 5 mg tablet 5 mg PO Q6H PRN (Reason: Pain, Moderate) Qty: 20 0RF omeprazole 20 mg capsule,delayed release(DR/EC) 20 mg PO DAILY MDD 2 30 Days Qty: 90 2RF cholecalciferol (vitamin D3) 50 mcg (2,000 unit) capsule 50 mcg PO DAILY Qty: 90 3RF docusate sodium 100 mg capsule 100 mg PO BEDTIME Qty: 90 3RF hydrocortisone [Proctosol HC] 2.5 % cream with perineal applicator 1 appl SD BID-QID PRN (Reason: hemorrhoids) Qty: 30 2RF Referrals: Reed Fung MD [Primary Care Provider] -
[2022-07-24] MEDS: Albuterol Sulfate (0.083%) 2.5 MG/3 ML VIAL.NEB 10 MG INHALE (17:27)
[2022-07-24 17:31] VITALS: PULSE 111; RESP 18; O2SAT 931
[2022-07-24] MEDS: Azithromycin 500 MG TABLET PO (17:40)
[2022-07-24] MEDS: predniSONE 20 MG TABLET 60 MG PO (17:40)
[2022-07-24 17:42] VITALS: O2SAT 96
--- NOTE | 2022-07-24 17:43 | PC.NURSE ---
Pt receiving breathing treatment at this time. Alert and oriented, offering no other complaints at this time. Call santiago within reach
[2022-07-24 19:23] VITALS: BP 156/96; PULSE 122; RESP 22; O2SAT 96
== END 2022-07-24 19:26 | disposition home or self-care (01) ==
PROVIDERS: Physician Assistant; Emergency Provider Emergency Medicine; PCP Internal Medicine
DX: J45.901 Unspecified asthma with (acute) exacerbation (principal); R06.02 Shortness of breath; Z20.822 Contact with and (suspected) exposure to COVID-19; Z20.828 Contact with and (suspected) exposure to other viral communicable diseases; Z79.899 Other long term (current) drug therapy
CPT/HCPCS: 71046; 80048; 80076; 83735; 84484; 85025; 87502; 87635; 93005; 94640; 99284; 99285

== ENCOUNTER 2022-07-28 09:00 | Outpatient (RCR) | payer OTHER, SELFPAY ==
--- NOTE | 2022-07-04 10:10 | MHC.PT.EP ---
[facility] [place] Office [place] [facility] [place] [facility] [address] Faye Villasenor [address] [phone] F: [phone] F: [phone] F: [phone] F: [phone] Physical Therapy Plan of Care Date of Evaluation: Date of Surgery: Diagnosis: Rt RC INSUFFICIENCY Assessment: 57 YO MALE REF TO PT FOR Rt > Lt SH RC INSUFFICIENCY- HE STATED HE IS AMBIDEXTROUS, HE HAS BEEN UNEMPLOYED SINCE 1996. RECENT MRI REVEALED : MR/MR shoulder RT wo con IMPRESSION:1. Supraspinatus tear measuring 3 x 3.4 cm. Tear is a combination of high-grade and full-thickness tearing. 2. Moderate infraspinatus tendinosis. 1.2 x 0.6 cm intrasubstance tear. 3. Moderate biceps tendinosis and partial tearing.4. Superior labral degeneration with possible tear.. Posterosuperior labral degenerative fraying/tear. 5. Mild glenohumeral joint arthritis. Small effusion. 6. Mild-moderate acromioclavicular arthritis. OBJECTIVE FINDINGS: LIMITED AROM/PROM CALLI SH AND CERV REGION, DECR POSTURAL AWARENESS, (+) STRENGTH DEFICITS IN CALLI SH RC/SCAP MM, AND (+) SOFT TISSUE TIGHTNESS AND PAIN W PALP. 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 Pt WOULD BENEFIT FROM PT TO ADDRESS THE ABOVE FINDINGS AND DEV HEP/ SELF SX STRATEGIES. Frequency and Duration: The patient will be seen 2 x WK x 5 WKS Short Term Goals: *Pt'S SH PAIN DECR TO 2-3 *Pt INDEP W SELF-CORRECT POSTURE AND BODY MECH *Pt IMPROVE CERV AND Rt SH AROM *REDUCE Senior Living Goals: *Pt INDEP W PROGR HEP AND SELF -SX MGMT TECHN *Pt IMPROVE SLEEP/ ADL PERF *Pt IMPROVE POST RC/ SCAP/ TRAP AND LAT STRENGTH BY 1/2 TO 1 GRADE *Pt DEMON WFL AROM CALLI SH W SELF-CORRECT UT COMPEN Treatment Plan: Modalities to reduce pain, spasms and effusion. Manual therapy to restore motion and function. Therapeutic exercise to improve strength and flexibility. Neuromuscular re-education for posture and balance. Therapeutic activities to return to functional activities of daily living. Electronically signed by: BRINDA PEDERSON PT Please sign and return to therapist. Thank you for your referral.
--- NOTE | 2022-09-02 08:57 | MHC.PT.DC ---
[facility] [place] Office [place] Office [place] Office [address] Faye Villasenor [address] [phone] F: [phone] F: [phone] F: [phone] F: [phone] Physical Therapy Discharge Report Diagnosis: Rt RC INSUFFICIENCY Date of Surgery: Date of Evaluation: 07/04/22 Date of Discharge: 09/02/22 Treatments to Date: 4 Cancellations to Date: 2 No Shows to Date: 1 Discharge Status: Improved Function Independent with HEP Patient Elected to Stop Visit Non-compliance Discharge Summary: Pt WAS BENEFITTING FROM [facility]/ [facility] / MANUAL TECHN FOR CALLI SH/ SCAP REGION. WITH MIRROR FEEDBACK/ VC/TC WE WERE ABLE TO ACTIVATE HIS MID BACK/ PARASCAP MM AND REDUCE UT COMPENSATION/ DOMINANCE- HIS Rt SH SXS WERE RESOLVING AND THE Pt DEMON IMPROVED CARRYOVER W POSTURAL SELF-CORRECTION. HE DID NOT MEET HIS PT GOALS DUE TO DECR ATTENDANCE. Electronically signed by: BRINDA PEDERSON,PT Please sign and return to therapist. Thank you for your referral.
== END 2022-09-02 08:56 | disposition home or self-care (01) ==
LOC: HO.PT 09:00
PROVIDERS: PCP Internal Medicine; Visit Provider Orthopaedic Surgery
DX: M25.311 Other instability, right shoulder (principal)
CPT/HCPCS: 97110; 97140; 97162

== ENCOUNTER 2022-12-20 07:56 | Outpatient (AMB) | payer OTHER, SELFPAY ==
[2022-12-20 08:12] VITALS: BP 154/95; PULSE 77; BMI 32.3
--- NOTE | 2022-12-20 08:12 | MHC.OFFVIS ---
Intake Vital Signs 12/20/22 08:12 Height 5 ft 3 in Weight 182 lb 8.684 oz BMI 32.3 BP 154/95 H Blood Pressure Location Lt brachial Position Sitting Pulse 77 Intake Visit Reasons: IBS, GERD Intake Note: Kvng presents in office as a est.patient for a f/u for IBS, GERD PT CC:pt reports having GERD pt denies any other GI Issues Outside Barrel Lathe Operator Required: Yes Outside Barrel Lathe Operator Language: Nauruan Accompanied by: Self / Same As Patient Allergies No Known Allergies Allergy (Verified 12/20/22 08:13) HPI IBS, GERD HPI Details LAST VISIT GERD (gastroesophageal reflux disease) Continue avoiding dietary triggers and late night snacking. Staying upright for minimum 3 hours after meals discussed with patient. Patient patient not using omeprazole anymore as his symptoms have subsided now that he is moving his bowels better IBS (irritable bowel syndrome) Continue avoiding dietary triggers. Continue taking Colace and senna. Patient reports that it has been working for him. I will see him in 6 months, sooner on as needed basis. Patient is agreeable to this plan and verbalizes understanding of instructions. He was given the opportunity to ask questions and all questions answered. ? Thank you for allowing me to participate in his care Plan Medications Refilled cholecalciferol (vitamin D3) 50 mcg PO DAILY 90 caps 3RF R79.89 docusate sodium 100 mg PO BEDTIME 90 caps 3RF K59.00 hydrocortisone 2.5% (Proctosol HC) 1 appl MD BID-QID PRN 30 grams 2RF hemorrhoids K64.9 sennosides (Natural Senna Laxative) 8.6 mg PO BEDTIME 90 tabs 3RF constipation K59.00 TODAY'S VISIT Patient is here today for follow-up. Patient reports that he ran out of his medications about a month ago. He ran out of his omeprazole and states that is feeling nauseous in the morning. Postprandial epigastric discomfort with acid reflux and dyspepsia without dysphagia or odynophagia. Patient states that he also ran out of Colace and is having trouble moving his bowels. Reports postprandial abdominal bloating. Patient states that he uses Proctosol on as needed basis for hemorrhoids. Patient denies rectal pain. Denies any melena, hematochezia, unintentional weight loss or ribbon like stools. [facility] Medical History Alopecia COVID-19 GERD (gastroesophageal reflux disease) Hypertension Hypertension Rotator cuff (capsule) sprain Surgical History History of back surgery History of colonoscopy History of esophagogastroduodenoscopy (EGD) Family History Father Family history of high blood pressure Hx of type 1 diabetes mellitus Mother Hx of multiple sclerosis Family history of high blood pressure Social History Household Members: Significant Other Housing: House Alcohol intake: unknown Patient Tobacco Use Status: Never used Tobacco e-Cigarette/Vaping Use: Never Used Second Hand Smoke Exposure: No service: No Current occupational status: disabled Current occupational exposures/hazards: No Cognitive needs: No Hearing needs: No Vision needs: Yes Review of Systems Const Denies weight gain and Denies weight loss ENT Reports no additional complaints, Denies dysphagia and Denies odynophagia Card Reports no additional complaints Resp Reports no additional complaints GI Denies abdominal pain, Denies belching, Denies melena, Reports bloating, Denies change in bowel habits, Reports constipation (Occasional), Denies dysphagia, Denies excessive flatus, Denies dyspepsia, Reports heartburn, Denies diarrhea, Denies loose stools, Reports nausea, Denies odynophagia and Denies vomiting Reports no additional complaints Musc Reports no additional complaints Neuro Reports no additional complaints Psych Reports no additional complaints Endo Reports no additional complaints Physical Exam Vital Signs: Last Vital Signs Pulse 77 12/20/22 08:12 BP 154/95 H 12/20/22 08:12 BMI result Body Mass Index 32.3 Const General: healthy appearing, no acute distress and well developed Nutritional Appearance: obese Orientation/consciousness: patient oriented x3 HEENT Head: Yes normal to inspection, Yes normocephalic and Yes atraumatic Face and sinus: Yes normal facial exam Mouth: Normal oral and palatal mucosa present Throat: Yes posterior oropharynx normal, Yes tonsils normal and Yes uvula midline Eyes General: appearance normal, both eyes and all related structures Neck Neck: Yes normal visual inspection, Yes full ROM and Yes trachea midline Thyroid: Thyroid normal Resp Effort & Inspection: normal respiratory effort, able to speak in complete sentences, no tracheal deviation and symmetric chest movement Auscultation: clear to auscultation bilaterally Cardio Rate: regular rate Heart sounds: S1 normal heart sound present and S2 normal heart sound present GI Inspection: Yes normal to inspection, No distended and Yes obesity Palpation (GI): Soft to palpation, not firm, nontender and No hepatosplenomegaly present Auscultation: normal bowel sounds General: Yes no CVA tenderness Back/Spine/Pelvis Back: no CVA tenderness Skin General skin exam: elasticity normal, turgor normal and dry skin Neuro General: patient oriented x3 Psych Appearance: grossly normal Mental Status: mental status grossly normal Speech and movement: Normal speech and movement present Affect: normal affect Assessment & Plan Assessment & Plan (1) GERD (gastroesophageal reflux disease): Code(s): K21.9 - Gastro-esophageal reflux disease without esophagitis Qualifiers: Esophagitis presence: esophagitis presence not specified Qualified Code(s): K21.9 - Gastro-esophageal reflux disease without esophagitis Plan: Continue pantoprazole every morning half an hour before breakfast. Patient was encouraged to avoid dietary triggers and late night snacking. Staying upright for minimum 3 hours after meals discussed with patient. (2) IBS (irritable bowel syndrome): Code(s): K58.9 - Irritable bowel syndrome without diarrhea Qualifiers: Irritable bowel syndrome type: with constipation Qualified Code(s): K58.1 - Irritable bowel syndrome with constipation Plan: Abdominal bloating most likely related to the food and patient being constipated. He can continue taking Colace and Senokot. Scripts sent to pharmacy. Patient was also encouraged to increase fluid intake and activity to promote better bowel motility. I will see patient in 6 months, sooner on as needed basis. Patient is agreeable to plan and verbalizes understanding of instructions. He was given the opportunity to ask questions and all questions answered. Thank you for allowing me to participate in his care Medications: New sennosides (Natural Senna Laxative) 8.6 mg PO BEDTIME 90 tabs 3RF constipation K59.00 - Constipation, unspecified Coding Level of Care Code Est Pt Level 3 (82949) Diagnoses GERD (gastroesophageal reflux disease) K21.9 Esophagitis presence: esophagitis presence not specified IBS (irritable bowel syndrome) K58.1 Irritable bowel syndrome type: with constipation Time Spent (min) 30 Comment 20 minutes spent with patient and additional 10 minutes spent reviewing his records
== END 2022-12-20 08:35 | disposition home or self-care (01) ==
PROVIDERS: PCP Internal Medicine; Visit Provider Nurse Practitioner Family
DX: K21.9 Gastro-esophageal reflux disease without esophagitis (principal); K58.1 Irritable bowel syndrome with constipation
CPT/HCPCS: 99213

== ENCOUNTER → 2022-12-20 07:56 | Outpatient (BNVA) | payer OTHER, SELFPAY | PROVIDERS: PCP Internal Medicine; Visit Provider Nurse Practitioner Family | DX: K21.9 Gastro-esophageal reflux disease without esophagitis (principal); K58.1 Irritable bowel syndrome with constipation | CPT/HCPCS: 99212 ==

== ENCOUNTER 2023-06-29 18:09 | Emergency (ER) | payer OTHER, SELFPAY ==
--- NOTE | ~2023-06-29 | XR_ITS ---
EXAMINATION: LEFT SHOULDER LEFT ELBOW RIGHT FOOT CLINICAL INFORMATION: Fall. Left shoulder pain. Left elbow pain. Pain right foot COMPARISON: Left shoulder 06/13/22 TECHNIQUE: 3 views left shoulder 3 views left elbow 3 views right foot FINDINGS: Left shoulder: No acute fracture or subluxation demonstrated. There are proliferative changes associated with the AC joint. There is mild sclerosis near the expected insertion of the rotator cuff. No suspicious abnormality in the visualized portion of the chest Left elbow: There is a 1.7 cm ossific density in the soft tissues dorsal to the elbow. There is irregularity of the olecranon. There are some overlying soft tissue changes including swelling. Proliferative change associated with the coracoid process. The radial head appears intact. Right foot: No acute fracture or subluxation. Mild dorsal calcaneal spur. There is arterial calcification. XR/XR elbow LT min 3V IMPRESSION: There is a ossific fragment associated with the olecranon with overlying soft tissue swelling. The contour suggests that this might be chronic. However, correlation is necessary No acute fracture or subluxation involving the right foot or left shoulder
--- NOTE | ~2023-06-29 | XR_ITS ---
EXAMINATION: LEFT SHOULDER LEFT ELBOW RIGHT FOOT CLINICAL INFORMATION: Fall. Left shoulder pain. Left elbow pain. Pain right foot COMPARISON: Left shoulder 06/13/22 TECHNIQUE: 3 views left shoulder 3 views left elbow 3 views right foot FINDINGS: Left shoulder: No acute fracture or subluxation demonstrated. There are proliferative changes associated with the AC joint. There is mild sclerosis near the expected insertion of the rotator cuff. No suspicious abnormality in the visualized portion of the chest Left elbow: There is a 1.7 cm ossific density in the soft tissues dorsal to the elbow. There is irregularity of the olecranon. There are some overlying soft tissue changes including swelling. Proliferative change associated with the coracoid process. The radial head appears intact. Right foot: No acute fracture or subluxation. Mild dorsal calcaneal spur. There is arterial calcification. XR/XR foot RT min 3V IMPRESSION: There is a ossific fragment associated with the olecranon with overlying soft tissue swelling. The contour suggests that this might be chronic. However, correlation is necessary No acute fracture or subluxation involving the right foot or left shoulder
--- NOTE | ~2023-06-29 | XR_ITS ---
EXAMINATION: LEFT SHOULDER LEFT ELBOW RIGHT FOOT CLINICAL INFORMATION: Fall. Left shoulder pain. Left elbow pain. Pain right foot COMPARISON: Left shoulder 06/13/22 TECHNIQUE: 3 views left shoulder 3 views left elbow 3 views right foot FINDINGS: Left shoulder: No acute fracture or subluxation demonstrated. There are proliferative changes associated with the AC joint. There is mild sclerosis near the expected insertion of the rotator cuff. No suspicious abnormality in the visualized portion of the chest Left elbow: There is a 1.7 cm ossific density in the soft tissues dorsal to the elbow. There is irregularity of the olecranon. There are some overlying soft tissue changes including swelling. Proliferative change associated with the coracoid process. The radial head appears intact. Right foot: No acute fracture or subluxation. Mild dorsal calcaneal spur. There is arterial calcification. XR/XR shoulder LT min 2V IMPRESSION: There is a ossific fragment associated with the olecranon with overlying soft tissue swelling. The contour suggests that this might be chronic. However, correlation is necessary No acute fracture or subluxation involving the right foot or left shoulder
[2023-06-29 18:12] VITALS: BP 169/105; PULSE 93; RESP 18; TEMP 37.1; O2SAT 97; BMI 30.9
--- NOTE | 2023-06-29 18:23 | ED.GENADULT ---
HPI - General Adult General Chief complaint: Fall Stated complaint: fell, R arm popped out of place? Time Seen by Provider: 06/29/23 19:31 Source: patient Mode of arrival: ambulatory Limitations: no limitations History of Present Illness HPI narrative: Patient comes to the emergency room complaining of left shoulder left elbow and right foot pain. Patient states that earlier today he was taking a shower and slipped. Patient denies hitting her head or losing consciousness, not on blood thinners. Patient reports it was a mechanical fall. Patient denies chest pain or shortness of breath. Related Data Previous Rx's Medication Instructions Recorded oxycodone 5 mg tablet 5 mg PO Q6H PRN Pain, Moderate #20 07/05/21 tabs albuterol sulfate 90 mcg/actuation 1 inh inhalation QID PRN shortness 07/24/22 aerosol inhaler of breath or wheezing #8.5 grams lisinopril 20 mg tablet 20 mg PO DAILY #90 tabs 09/17/22 docusate sodium 100 mg capsule 100 mg PO BEDTIME #90 caps 12/09/22 hydrocortisone 2.5 % topical cream 1 appl [place] BID-QID PRN hemorrhoids 12/09/22 with perineal applicator #30 grams (Proctosol HC) omeprazole 20 mg capsule,delayed 20 mg PO DAILY nocturnal gerd 30 12/09/22 release days #90 caps cholecalciferol (vitamin D3) 50 50 mcg PO DAILY #90 caps 01/17/23 mcg (2,000 unit) capsule sennosides 8.6 mg tablet (senna) 8.6 mg PO BEDTIME for constipation 01/17/23 #90 tabs ibuprofen 600 mg tablet 600 mg PO TID PRN fever or pain 06/29/23 #20 tabs tramadol 50 mg tablet 50 mg PO Q8H PRN pain #7 tabs 06/29/23 Allergies Allergy/AdvReac Type Severity Reaction Status Date / Time No Known Allergies Allergy Verified 06/29/23 18:21 Review of Systems Review of Systems: Constitutional : No Weight loss, No Fever, No Chills, No Night Sweats, No Fatigue, No Malaise ENT/Mouth : No Hearing loss, No Ear Pain, No Nasal Congestion, No Sinus Pain, No Hoarseness, No sore throat, No Rhinorrhea, No Swallowing Difficulty Eyes: No Eye Pain, No Swelling, No Redness, No Foreign Body, No Discharge, No Vision Changes Cardiovascular : No Chest Pain, No SOB, No Dyspnea on Exertion, No Orthopnea, No Edema, No Palpitations Respiratory : No Cough, No Sputum, No Wheezing, No Smoke Exposure, No Dyspnea Gastrointestinal : No Nausea, No Vomiting, No Diarrhea, No Constipation, No abdominal Pain, No Hematochezia, No Melena Genitourinary : no irregular bleeding, No Dysuria, No Urinary Frequency, No Hematuria, No Urinary Incontinence, No Urgency, No Flank Pain, No Urinary Flow Changes, No Hesitancy Musculoskeletal : Complaining of left elbow pain and swelling, complaining of left shoulder pain, complaining of right ankle pain Skin : No Skin Lesions, No rash Neuro : No Weakness, No Numbness, No Paresthesias, No Loss of Consciousness, No Dizziness, No Headache Psych : No Anxiety/Panic, No Depression, No SI/HI/AH/VH, No Social Issues, Heme/Lymph: No Bruising, No Bleeding,No Lymphadenopathy Endocrine : No Polyuria, No Polydipsia, No Temperature Intolerance [facility] Past Medical History Medical History Hypertension Rotator cuff (capsule) sprain COVID-19 Alopecia Hypertension GERD (gastroesophageal reflux disease) Surgical History History of back surgery History of colonoscopy History of esophagogastroduodenoscopy (EGD) Family History Family History Father Family history of high blood pressure Hx of type 1 diabetes mellitus Mother Hx of multiple sclerosis Family history of high blood pressure Social History Social History Household Members: Significant Other Housing: House Alcohol intake: unknown Patient Tobacco Use Status: Never used Tobacco e-Cigarette/Vaping Use: Never Used Second Hand Smoke Exposure: No Advance Directives: No Advance Directives Information Provided: No service: No Current occupational status: disabled Current occupational exposures/hazards: No Cognitive needs: No Hearing needs: No Vision needs: Yes Physical Exam ED Vital Signs: Vital Signs - 24 hr 06/29/23 18:12 Temperature 98.8 F Pulse Rate 93 Respiratory Rate 18 Blood Pressure 169/105 H Pulse Oximetry 97 Oxygen Delivery Method Room Air BMI result Body Mass Index 30.9 Const Other: Appearance: Alert. Oriented X3. No acute distress. Eyes: Pupils equal, round and reactive to light. ENT: Pharynx normal. Neck: Normal inspection. Neck supple. No lymph nodes noted. No crepitus CVS: Normal heart rate and rhythm. Pulses normal. Normal S1 and S2 Respiratory: No respiratory distress. Breath sounds normal. No Wheezing. No rales Abdomen: Soft and nontender. No rigidity. No distention. Skin: Skin warm and dry. Normal skin color. Normal skin turgor. Extremities: Right ankle, normal flexion and extension, able to bear weight, no obvious deformity, no swelling. Left elbow has a palpable effusion, pain to palpation, patient unwilling to flex and extend the elbow, pain to palpation over the entire shoulder without specific point tenderness, patient states it hurts to abduct the arm. Neuro: Oriented X 3. No motor deficit. No sensory deficit. Moving all extremities. No slurred speech. CN 2 through 12 grossly intact Psych: calm, cooperative, normal affect Course Course Course Narrative: This is an RME: Additional HPI, ROS, PE not included below will be deferred to primary provider. This is a 58-year-old male presenting to the emergency department complaints of left shoulder and left elbow pain status post mechanical fall which occurred in the shower today. States he slipped and fell onto his left shoulder. Denies hx of headstrike or LOC. He states that he has a history of left shoulder rotator cuff injury. Also endorsing right 2nd and 3rd toe pain after the fall. Plan: X-rays Medical Decision Making Medical Decision Making [facility] Narrative: My interpretation of x-rays: Normal alignment of shoulder and elbow and ankle, no obvious fractures -patient was given IM Toradol and p.o. cyclobenzaprine -patien was given a sling, patient instructed to follow-up with orthopedics, rotator cuff injury may be possible, patient may need physical therapy and MRI Independent Interpretation I performed an independent interpretation of an: Plain X-Ray Radiology Impression Discussion of test interpretation with radiology: I have reviewed the radiologist's reading. Radiologist Impression: IMPRESSION: There is a ossific fragment associated with the olecranon with overlying soft tissue swelling. The contour suggests that this might be chronic. However, correlation is necessary No acute fracture or subluxation involving the right foot or left shoulder Discharge Plan Discharge Clinical Impression: Fall, Effusion of left elbow, Contusion of shoulder, left, Acute pain of right foot Patient Disposition: Home, Self-Care Instructions: Arthralgia (ED) Additional Instructions: Please follow-up with your primary care physician tomorrow. If you have any worsening or new symptoms, please return to the emergency room or call 911 Prescriptions: New tramadol 50 mg tablet 50 mg PO Q8H PRN (Reason: pain) Qty: 7 0RF ibuprofen 600 mg tablet 600 mg PO TID PRN (Reason: fever or pain) Qty: 20 0RF No Action lisinopril 20 mg tablet 20 mg PO DAILY Qty: 90 8RF docusate sodium 100 mg capsule 100 mg PO BEDTIME Qty: 90 3RF hydrocortisone [Proctosol HC] 2.5 % cream with perineal applicator 1 appl TX BID-QID PRN (Reason: hemorrhoids) Qty: 30 2RF omeprazole 20 mg capsule,delayed release(DR/EC) 20 mg PO DAILY MDD 2 30 Days Qty: 90 2RF cholecalciferol (vitamin D3) 50 mcg (2,000 unit) capsule 50 mcg PO DAILY Qty: 90 0RF sennosides [senna] 8.6 mg tablet 8.6 mg PO BEDTIME Qty: 90 0RF oxycodone 5 mg tablet 5 mg PO Q6H PRN (Reason: Pain, Moderate) Qty: 20 0RF albuterol sulfate 90 mcg/actuation HFA aerosol inhaler 1 inh inhalation QID PRN (Reason: shortness of breath or wheezing) Qty: 8.5 0RF Referrals: Ama Hall PA-C [Physician Supply Specialist] - 07/03/23
[2023-06-29] MEDS: Cyclobenzaprine HCl 10 MG TABLET PO (20:28)
[2023-06-29] MEDS: Ketorolac Tromethamine 60 MG/2 ML VIAL IM (20:28)
== END 2023-06-29 20:40 | disposition home or self-care (01) ==
PROVIDERS: Emergency Provider Emergency Medicine; PCP Internal Medicine
DX: S50.02XA Contusion of left elbow, initial encounter (principal); S40.012A Contusion of left shoulder, initial encounter; M79.671 Pain in right foot; M79.602 Pain in left arm; W18.2XXA Fall in (into) shower or empty bathtub, initial encounter; Y93.E1 Activity, personal bathing and showering; Y92.002 Bathroom of unspecified non-institutional (private) residence as the place of occurrence of the external cause; Y99.8 Other external cause status; Z79.899 Other long term (current) drug therapy
CPT/HCPCS: 73030; 73080; 73630; 96372; 99284; J1885

== ENCOUNTER 2023-07-07 13:58 | Outpatient (AMB) | payer OTHER, SELFPAY ==
--- NOTE | 2023-07-07 13:59 | A.OFFPC_ITS ---
Vital Signs 07/07/23 14:00 Height 5 ft 4 in Weight 184 lb BMI 31.6 BP 130/82 Blood Pressure Location Rt brachial Position Sitting Pulse 79 Pulse Source Pulse Oximeter Pulse Oximetry (%) 98 Oxygen Delivery Method Room Air Intake Visit Reasons: [facility] [place] 06/29/23 Intake Note: Patient is here to follow-up after a visit the emergency department at [facility] [place] on 06/29/2023 for left elbow pain due to a fall Forensic Pathologist Required: No Allergies No Known Allergies Allergy (Verified 07/07/23 14:00) Medication List - Last Reconciled 07/10/23 by Reed uFng MD albuterol sulfate 90 mcg/actuation 1 inh inhalation QID PRN cholecalciferol (vitamin D3) 50 mcg PO DAILY docusate sodium 100 mg PO BEDTIME hydrocortisone 2.5% (Proctosol HC) 1 appl [place] BID-QID PRN ibuprofen 600 mg PO TID PRN lisinopril 20 mg PO DAILY naproxen (Naprosyn) 500 mg PO BID PRN omeprazole 20 mg PO DAILY 30 days MDD 2 oxycodone 5 mg PO Q6H PRN sennosides (senna) 8.6 mg PO BEDTIME tramadol 50 mg PO Q8H PRN Tobacco use date assessed: 07/07/23 Dental Screening Dental Screen Date: 07/07/23 HPI [facility] [place] 06/29/23 HPI Details fell and injured left elbow; no fractures; improving PFSH Medical History Hypertension Rotator cuff (capsule) sprain COVID-19 Alopecia Hypertension GERD (gastroesophageal reflux disease) Surgical History History of back surgery History of colonoscopy History of esophagogastroduodenoscopy (EGD) Family History Father Family history of high blood pressure Hx of type 1 diabetes mellitus Mother Hx of multiple sclerosis Family history of high blood pressure Social History Household Members: Significant Other Housing: House Alcohol intake: unknown Patient Tobacco Use Status: Never used Tobacco e-Cigarette/Vaping Use: Never Used Second Hand Smoke Exposure: No service: No Current occupational status: disabled Current occupational exposures/hazards: No Cognitive needs: No Hearing needs: No Vision needs: Yes Questionnaire Thrive Questionnaire Date Thrive assessed: 08/19/22 AUDIT C Alcohol Use Questionnaire (AUDIT-C) 1. How often do you have a drink containing alcohol?: 2-4 times a month 2. How many drinks containing alcohol do you have on a typical day when you are drinking?: 1 or 2 3. How often do you have six or more drinks on one occasion?: Never Total Score: 2 Score Reviewed/Action Taken: Yes TEDDY-7 AMB Questionnaire TEDDY-7 Date TEDDY - 7 assessed: 08/19/22 Source: Developed by Drs. Mitchel Merchant, Xiao Valencia, Oli Marcelino and colleagues, with an educational kathleen from [employer]. Review of Systems Const Denies chills, Denies headache(s) and Denies weight loss ENT Denies headache(s) Card Denies chest pain, Denies syncope, Denies irregular heart rhythm and Denies dyspnea Resp Denies chest congestion, Denies cough and Denies dyspnea GI Denies abdominal pain, Denies change in stool character, Denies nausea and Denies vomiting Musc Denies deformity and Denies joint swelling Neuro Denies syncope and Denies headache(s) Physical exam (Primary Care) Vital Signs: Last Vital Signs Pulse 79 07/07/23 14:00 BP 130/82 07/07/23 14:00 Pulse Ox 98 07/07/23 14:00 Oxygen Delivery Method Room Air 07/07/23 14:00 BMI result Body Mass Index 31.6 Tobacco/Smoking Status: Tobacco use Status Tobacco use date assessed 07/07/23 07/07/23 14:01 Patient Tobacco Use Status Never used Tobacco 07/07/23 14:01 e-Cigarette/Vaping Use Never Used 07/07/23 14:01 Thrive Assessment: Date of Thrive Assessment Date Thrive assessed 08/19/22 07/07/23 14:01 Const General: cooperative, comfortable, no acute distress and alert Neck Neck: Yes no lymphadenopathy Thyroid: Thyroid normal Resp Effort & Inspection: normal respiratory effort Auscultation: clear to auscultation bilaterally Percussion: percussion normal Cardio Jugular venous distension: no JVD Palpation: normal PMI Rate: regular rate Rhythm: regular rhythm Heart sounds: S1 normal heart sound present and S2 normal heart sound present GI Inspection: Yes normal to inspection Palpation (GI): No hepatosplenomegaly present Skin General skin exam: no rashes or lesions noted Extrem General: Yes no clubbing, cyanosis or edema Assessment and Plan Assessment & Plan (1) Left elbow contusion: Code(s): S50.02XA - Contusion of left elbow, initial encounter Plan: ice ans nsaids Medications: New naproxen (Naprosyn) 500 mg PO BID PRN 60 tabs 0RF pain Coding Level of Care Code Est Pt Level 3 (31388) Diagnoses Left elbow contusion S50.02XA
[2023-07-07 14:00] VITALS: BP 130/82; PULSE 79; O2SAT 98; BMI 31.6
== END 2023-07-07 16:20 | disposition home or self-care (01) ==
PROVIDERS: PCP Internal Medicine; Visit Provider Internal Medicine
DX: S50.02XA Contusion of left elbow, initial encounter (principal); W19.XXXA Unspecified fall, initial encounter
CPT/HCPCS: 99213

== ENCOUNTER 2023-08-04 18:04 | Emergency (ER) | payer OTHER, SELFPAY ==
--- NOTE | ~2023-08-04 | CT_ITS ---
EXAMINATION: CT head/brain wo IV con, CT cervical spine wo IV con INDICATION INFORMATION: Reason for Exam trauma COMPARISON: CT head without contrast 01/21/2018 TECHNIQUE: Separate noncontrast CT examinations of the head and cervical spine were performed. Coronal and sagittal images were created for each examination at the technologist workstation. This CT examination was performed using dose optimization techniques as appropriate, variously including the following: *Automated exposure control *Adjustment of mA and/or kV according to patient size (this includes techniques or standardized protocols for targeted exams where dose is matched to indication/reason for exam; i.e. extremities or head) *Use of iterative reconstruction technique DLP: 1065 mGy-cm FINDINGS: Head: No acute osseous or soft tissue abnormality. The mastoid air cells and visualized portions of the paranasal sinuses are well aerated. There is no evidence of acute intracranial hemorrhage or territorial infarction. No abnormal mass effect or midline shift is seen. Antonio to white matter differentiation is well preserved. No extra-axial fluid collections are identified. No hydrocephalus. No significant volume loss. Patchy periventricular and deep white matter hypoattenuation is consistent with mild small vessel ischemic changes. Cervical spine: There is no evidence of acute cervical spine fracture. Vertebral bodies remain normal in height. Cervical straightening. No significant spondylolisthesis. Moderate multilevel cervical spondylosis. No pre- or paravertebral soft tissue abnormality is identified. Visualized portions of the lung apices are unremarkable. The thyroid gland is unremarkable. CT/CT cervical spine wo IV con IMPRESSION: 1. No acute intracranial abnormality. 2. No cervical spine fracture or traumatic malalignment.
--- NOTE | ~2023-08-04 | CT_ITS ---
EXAMINATION: CT head/brain wo IV con, CT cervical spine wo IV con INDICATION INFORMATION: Reason for Exam trauma COMPARISON: CT head without contrast 01/21/2018 TECHNIQUE: Separate noncontrast CT examinations of the head and cervical spine were performed. Coronal and sagittal images were created for each examination at the technologist workstation. This CT examination was performed using dose optimization techniques as appropriate, variously including the following: *Automated exposure control *Adjustment of mA and/or kV according to patient size (this includes techniques or standardized protocols for targeted exams where dose is matched to indication/reason for exam; i.e. extremities or head) *Use of iterative reconstruction technique DLP: 1065 mGy-cm FINDINGS: Head: No acute osseous or soft tissue abnormality. The mastoid air cells and visualized portions of the paranasal sinuses are well aerated. There is no evidence of acute intracranial hemorrhage or territorial infarction. No abnormal mass effect or midline shift is seen. Antonio to white matter differentiation is well preserved. No extra-axial fluid collections are identified. No hydrocephalus. No significant volume loss. Patchy periventricular and deep white matter hypoattenuation is consistent with mild small vessel ischemic changes. Cervical spine: There is no evidence of acute cervical spine fracture. Vertebral bodies remain normal in height. Cervical straightening. No significant spondylolisthesis. Moderate multilevel cervical spondylosis. No pre- or paravertebral soft tissue abnormality is identified. Visualized portions of the lung apices are unremarkable. The thyroid gland is unremarkable. CT/CT head/brain wo IV con IMPRESSION: 1. No acute intracranial abnormality. 2. No cervical spine fracture or traumatic malalignment.
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
[2023-08-04 18:19] VITALS: BP 189/88; PULSE 90; RESP 18; TEMP 36.6; O2SAT 97; BMI 33.0
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
[2023-08-04] MEDS: Cyclobenzaprine HCl 5 MG TABLET PO (20:01)
[2023-08-04] MEDS: Ketorolac Tromethamine 15 MG/ML VIAL IM (20:01)
[2023-08-04 20:05] VITALS: PULSE 91; RESP 16; TEMP 36.6; O2SAT 97
== END 2023-08-04 20:15 | disposition home or self-care (01) ==
PROVIDERS: Emergency Provider Emergency Medicine; PCP Internal Medicine
DX: Z04.1 Encounter for examination and observation following transport accident (principal); M54.50 Low back pain, unspecified; M54.2 Cervicalgia; I10 Essential (primary) hypertension
CPT/HCPCS: 70450; 72100; 72125; 96372; 99284; J1885

== ENCOUNTER 2024-07-19 13:21 | Outpatient (AMB) | payer OTHER, SELFPAY ==
--- NOTE | 2024-07-19 13:32 | A.OFFPC_ITS ---
Vital Signs 07/19/24 13:34 Height 5 ft 3 in Weight 173 lb 4 oz BMI 30.7 BP 110/70 Blood Pressure Location Lt brachial Position Sitting Pulse 94 Pulse Source Pulse Oximeter Temp 96.9 F Temp Source Temporal Artery Scan Pulse Oximetry (%) 97 Oxygen Delivery Method Room Air Intake Visit Reasons: PE annual Intake Note: Patient is here today for a physical. Respooler Required: No Family Services Manager: Not Required per policy Accompanied by: Self / Same As Patient Allergies No Known Allergies Allergy (Verified 07/19/24 13:33) Medication List - Last Reconciled 07/22/24 by Reed Fung MD albuterol sulfate 90 mcg/actuation 1 inh inhalation QID PRN cholecalciferol (vitamin D3) 50 mcg PO DAILY cyclobenzaprine 5 mg PO TID PRN 7 days docusate sodium 100 mg PO BEDTIME hydrocortisone 2.5% (Proctosol HC) 1 appl HI BID-QID PRN ibuprofen 600 mg PO TID PRN lisinopril 20 mg PO DAILY naproxen (Naprosyn) 500 mg PO BID PRN omeprazole 20 mg PO DAILY 30 days MDD 2 sennosides (senna) 8.6 mg PO BEDTIME Tobacco use date assessed: 07/19/24 Dental Screening Dental Screen Date: 07/19/24 Did you have a dental visit in the last 12 months?: Yes Did you have a dental problem in the last 6 months where you did not have access to dental care?: No Was dental information given to patient?: Patient has dentist HPI PE annual HPI Details asthma and hypertension; stable [facility] Medical History Hypertension Rotator cuff (capsule) sprain COVID-19 Alopecia Hypertension GERD (gastroesophageal reflux disease) Surgical History History of esophagogastroduodenoscopy (EGD) History of back surgery History of colonoscopy Family History Father Family history of high blood pressure Hx of type 1 diabetes mellitus Mother Hx of multiple sclerosis Family history of high blood pressure Social History Household Members: Significant Other Housing: House Alcohol intake: unknown Patient Tobacco Use Status: Never used Tobacco e-Cigarette/Vaping Use: Never Used Second Hand Smoke Exposure: No service: No Current occupational status: disabled Current occupational exposures/hazards: No Cognitive needs: No Hearing needs: No Vision needs: Yes (Glasses) Questionnaire PHQ-9 Over the last 2 weeks, how often have you been bothered by any of the following problems? 1. Little interest or pleasure in doing things: not at all 2. Feeling down, depressed, or hopeless: not at all 3. Trouble falling or staying asleep, or sleeping too much: several days 4. Feeling tired or having little energy: several days 5. Poor appetite or overeating: several days 6. Feeling bad about yourself - or that you are a failure or have let yourself or your family down: not at all 7. Trouble concentrating on things, such as reading the newspaper or watching television: not at all 8. Moving or speaking so slowly that other people could have noticed. Or the opposite - being so fidgety or restless that you have been moving around a lot more than usual: not at all 9. Thoughts that you would be better off or of hurting yourself in some way: not at all Total score: 3 Depression Screening Interpretation: Positive Depression Screening Done: Yes Source: Developed by Drs. Mitchel Merchant, Xiao Valencia, Oli Marcelino and colleagues, with an educational kathleen from [employer]. Thrive Questionnaire Date Thrive assessed: 07/19/24 I am a: Patient What is your living situation today?: I have a steady place to live Within the past 12 months, did the food you bought not last and you didn't have the money to get more?: Sometimes True Within the past 12 months, did you worry whether your food would run out before you got money to buy more?: Sometimes True Do you have trouble paying for medicines?: No Do you have trouble getting transportation to medical appointments?: No Do you have trouble paying your heating and electricity bill?: No Do you have trouble taking care of your child, family member or friend?: No Do you have trouble with day-to-day activities such as bathing, preparing meals, shopping, managing finances, etc.?: Yes Are you currently unemployed and looking for a job?: Yes Are you interested in more education?: No Please select the resources that you would like help with: None Currently or been in a relationship where the following occur: I choose not to answer THRIVE Score: 2 AUDIT C Alcohol Use Questionnaire (AUDIT-C) 1. How often do you have a drink containing alcohol?: Never Total Score: 0 TEDDY-7 AMB Questionnaire TEDDY-7 Date TEDDY - 7 assessed: 07/19/24 Feeling nervous, anxious, or on edge: 0 = Not at all Not being able to stop or control worryin = Not at all Worrying too much about different things: 1 = Several days Trouble relaxin = Not at all Being so restless that it is hard to sit still: 0 = Not at all Becoming easily annoyed or irritable: 0 = Not at all Feeling afraid as if something awful might happen: 0 = Not at all Total TEDDY-7 score (0-4 normal; 5-9 mild; 10-14 moderate; 15-21 severe): 1 Source: Developed by Drs. Micthel Merchant, Xiao Valencia, Oli Marcelino and colleagues, with an educational kathleen from [employer]. Review of Systems Const Denies chills, Denies fatigue, Denies headache(s) and Denies weight loss Eyes Denies change in vision, Denies diplopia and Denies eye pain ENT Denies vertigo, Denies dizziness, Denies headache(s) and Denies nasal discharge Card Denies chest pain, Denies rapid heart rate and Denies dyspnea on exertion Resp Denies chest congestion, Denies cough, Denies pain with cough and Denies dyspnea on exertion GI Denies abdominal pain, Denies hematochezia and Denies change in bowel habits Musc Denies myalgias, Denies arthralgias and Denies joint swelling Skin/Breast Denies lesions and Denies unusual bruising Neuro Denies vertigo, Denies dizziness, Denies headache(s) and Denies focal weakness Endo Denies fatigue Physical exam (Primary Care) Vital Signs: Last Vital Signs Temp 96.9 F 07/19/24 13:34 Pulse 94 07/19/24 13:34 BP 110/70 07/19/24 13:34 Pulse Ox 97 02/14/25 13:34 Oxygen Delivery Method Room Air 07/19/24 13:34 BMI result Body Mass Index 30.7 Tobacco/Smoking Status: Tobacco use Status Tobacco use date assessed 07/19/24 07/19/24 13:41 Patient Tobacco Use Status Never used Tobacco 07/19/24 13:41 e-Cigarette/Vaping Use Never Used 07/19/24 13:41 PHQ-9: PHQ-9 Score PHQ-9: Total score 3 07/19/24 13:41 Depression Screening Interpretation: Positive Thrive Assessment: Date of Thrive Assessment Date Thrive assessed 07/19/24 07/19/24 13:41 Currently or been in a relationship where the following occur: I choose not to answer Const General: cooperative, healthy appearing and no acute distress Orientation/consciousness: oriented to person, oriented to place and oriented to time HENMT Head: Yes normal to inspection, Yes normocephalic and Yes atraumatic Mouth: Normal oral and palatal mucosa present and tongue normal Throat: Yes posterior oropharynx normal and Yes uvula midline Eyes General: appearance normal, both eyes and all related structures Neck Neck: Yes normal visual inspection, Yes full ROM and Yes no lymphadenopathy Thyroid: Thyroid normal Carotids: normal carotid upstroke Chest Chest palpation & inspection: normal inspection of the chest Resp Effort & Inspection: normal respiratory effort and able to speak in complete sentences Auscultation: clear to auscultation bilaterally Cardio Jugular venous distension: no JVD Palpation: normal PMI Rate: regular rate Rhythm: regular rhythm Heart sounds: S1 normal heart sound present and S2 normal heart sound present GI Inspection: Yes normal to inspection Palpation (GI): Soft to palpation and No hepatosplenomegaly present Auscultation: normal bowel sounds General: Yes no CVA tenderness Back/Spine/Pelvis Back: no CVA tenderness Skin General skin exam: no rashes or lesions noted Neuro General: oriented to person, oriented to place and oriented to time Extrem General: Yes normal to inspection and Yes full ROM Coding Level of Care Code Est Pt Prev Care 40-64y(66444) Diagnoses Physical exam Z00.00 Hypertension I10 Asthma J45.909 Assessment & Plan Assessment & Plan (1) Physical exam: Code(s): Z00.00 - Encounter for general adult medical examination without abnormal findings Category: Medical Plan: stable (2) Hypertension: Code(s): I10 - Essential (primary) hypertension Category: Medical Plan: stable; same rx (3) Asthma: Code(s): J45.909 - Unspecified asthma, uncomplicated Category: Medical Plan: stable; same rx
[2024-07-19 13:34] VITALS: BP 110/70; PULSE 94; TEMP 36.1; O2SAT 97; BMI 30.7
== END 2024-07-19 14:44 | disposition home or self-care (01) ==
PROVIDERS: PCP Internal Medicine; Visit Provider Internal Medicine
DX: Z00.00 Encounter for general adult medical examination without abnormal findings (principal); I10 Essential (primary) hypertension; J45.909 Unspecified asthma, uncomplicated

== ENCOUNTER → 2024-07-19 13:21 | Outpatient (BNVA) | payer OTHER, SELFPAY | PROVIDERS: PCP Internal Medicine; Visit Provider Internal Medicine | DX: Z00.00 Encounter for general adult medical examination without abnormal findings (principal); I10 Essential (primary) hypertension; J45.909 Unspecified asthma, uncomplicated | CPT/HCPCS: 99396 ==

== ENCOUNTER 2025-04-30 10:17 | Outpatient (REF) | payer OTHER, SELFPAY ==
--- NOTE | ~2025-04-30 | XR_ITS ---
EXAMINATION: XR KNEE, RIGHT CLINICAL INFORMATION: M25.569 - Pain in unspecified knee COMPARISON: 11/29/2019 TECHNIQUE: AP and lateral views of the right knee. FINDINGS: No fracture, dislocation, or suspicious bone lesion. There is normal alignment. Minimal tricompartmental joint space narrowing is present, consistent with minimal osteoarthrosis. There is mild spurring of the tibial spines. On the lateral projection, there is a large enthesophyte arising from the inferior patella. There is also a large enthesophyte arising from the tibial tuberosity. 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 There is a moderate suprapatellar joint effusion present. There are vascular calcifications in the soft tissues. XR/XR knee RT 2V IMPRESSION: 1. No acute bony findings of the right knee. 2. There is a moderate suprapatellar joint effusion. 3. There is a large enthesophyte arising from the inferior patella, and a large enthesophyte arising from the tibial tubercle as detailed. 4. There is mild tricompartmental osteoarthrosis. Electronically signed by: Mir Abrams MD 04/30/2025 01:10 PM [facility] [place]
[2025-04-30 13:26] LABS: Hematocrit 50.1 % (42.0-52.0); Hemoglobin 17.5 g/dl (14.0-18.0); Mean Corpuscular HGB Conc 34.9 g/dl (31.0-36.0); Mean Corpuscular Hemoglobin 30.5 pg (27.0-33.0); Mean Corpuscular Volume 87.4 fL (80.0-98.0); NRBC Abs Auto 0.000 X10*3/uL (0.0-0.012); NRBC Pct Auto 0.0 /100WBC (0.0-0.2); Platelet Count 260 X10*3/uL (160-400); Red Blood Count 5.73 X10*6/uL (4.60-5.80); White Blood Count 7.2 X10*3/uL (4.8-10.8)
[2025-04-30 14:04] LABS: Alanine Aminotransferase 35 U/L (0-40); Albumin Level 5.1 g/dL (3.5-5.0); Alkaline Phosphatase 133 U/L (39-117); Anion Gap 11 (12-20); Aspartate Amino Transferase 26 U/L (5-37); Blood Urea Nitrogen 13 mg/dL (9-16); Calcium 9.9 mg/dL (8.4-10.2); Carbon Dioxide 26 mmol/L (22-29); Chloride 106 mmol/L (96-108); Cholesterol 226 mg/dL (<200); Estimated Glomerular Filt Rate > 60; HDL Cholesterol 50 mg/dL (>40); Potassium 4.2 mmol/L (3.3-5.1); Sodium 139 mmol/L (135-145); Total Protein 8.0 g/dL (6.5-8.0); Triglycerides 151 mg/dL (<150)
[2025-05-01 05:06] LABS: HIV Num 1 0.08 S/CO (0.00-0.99); ~HepC Num1 0.08 S/CO (0.00-0.79); ~Hepatitis C Antibody Nonreactive (Nonreactive)
== END 2025-04-30 10:18 | disposition home or self-care (01) ==
LOC: HO.LAB 10:17
PROVIDERS: PCP Internal Medicine; Visit Provider Internal Medicine
DX: Z00.00 Encounter for general adult medical examination without abnormal findings (principal); K59.00 Constipation, unspecified; M25.561 Pain in right knee; I10 Essential (primary) hypertension; K21.9 Gastro-esophageal reflux disease without esophagitis; M75.101 Unspecified rotator cuff tear or rupture of right shoulder, not specified as traumatic; Z79.899 Other long term (current) drug therapy
CPT/HCPCS: 36415; 73560; 80053; 80061; 83036; 84443; 85027; 86803; 87389; 99202

== ENCOUNTER 2025-04-30 10:17 | Outpatient (AMB) | payer OTHER, SELFPAY ==
--- NOTE | 2025-04-30 10:53 | MHC.PC.OV ---
Vital Signs 04/30/25 11:17 Height 5 ft 3 in Weight 176 lb BMI 31.2 BP 154/88 H Blood Pressure Location Lt brachial Position Sitting Respiration 18 Pulse 74 Pulse Source Pulse Oximeter Pulse Oximetry (%) 98 Oxygen Delivery Method Room Air Intake Visit Reasons: SUKUMAR from [employer] Required: No Accompanied by: Self / Same As Patient Allergies No Known Allergies Allergy (Verified 04/30/25 10:54) Medication List - Last Reconciled 04/30/25 by Catrachita Payne MD cholecalciferol (vitamin D3) 50 mcg PO DAILY lisinopril 20 mg PO DAILY naproxen (Naprosyn) 500 mg PO BID PRN omeprazole 20 mg PO DAILY 30 days MDD 2 polyethylene glycol 3350 (Miralax) 17 grams PO DAILY PRN sennosides (senna) 8.6 mg PO DAILY Tobacco use date assessed: 04/30/25 Dental Screening Dental Screen Date: 04/30/25 Did you have a dental visit in the last 12 months?: No Did you have a dental problem in the last 6 months where you did not have access to dental care?: No Was dental information given to patient?: Patient declined HPI HPI Comments History of Present Illness Details The patient is a 60 year old M with PMH of vit D deficiency, HTN, GERD, constipation, and right rotator cuff tear presenting for a new patient visit and medication review. The patient has a history of hypertension, for which the patient takes lisinopril 20 mg once daily. The patient reports ongoing issues with constipation and has been taking docusate and Senna. The patient endorses a diet that includes a lot of cheese, pasta, red meat, and sugars and has not previously attempted dietary modifications for constipation. The patient also has chronic pain secondary to a prior back surgery and shoulder problems, for which the patient takes ibuprofen 600 mg once daily and naproxen. The patient was previously scheduled for shoulder surgery which the patient declined, but is now reconsidering it due to new-onset numbness in the patient's fingers and hand. For the last two weeks, the patient has been experiencing severe right knee pain that began while walking and makes it difficult to climb stairs. [facility] Medical History Hypertension Rotator cuff (capsule) sprain COVID-19 Alopecia Hypertension GERD (gastroesophageal reflux disease) Surgical History History of esophagogastroduodenoscopy (EGD) History of back surgery History of colonoscopy Family History Father Family history of high blood pressure Hx of type 1 diabetes mellitus Mother Hx of multiple sclerosis Family history of high blood pressure Social History Household Members: Significant Other Housing: House Alcohol intake: unknown Patient Tobacco Use Status: Never used Tobacco e-Cigarette/Vaping Use: Never Used Second Hand Smoke Exposure: No service: No Current occupational status: disabled Current occupational exposures/hazards: No Cognitive needs: No Hearing needs: No Vision needs: Yes (Glasses) Questionnaire Thrive Questionnaire Date Thrive assessed: 07/19/24 I am a: Patient What is your living situation today?: I have a steady place to live Within the past 12 months, did the food you bought not last and you didn't have the money to get more?: Sometimes True Within the past 12 months, did you worry whether your food would run out before you got money to buy more?: Sometimes True Do you have trouble paying for medicines?: No Do you have trouble getting transportation to medical appointments?: No Do you have trouble paying your heating and electricity bill?: No Do you have trouble taking care of your child, family member or friend?: No Do you have trouble with day-to-day activities such as bathing, preparing meals, shopping, managing finances, etc.?: Yes Are you currently unemployed and looking for a job?: Yes Are you interested in more education?: No Please select the resources that you would like help with: None Currently or been in a relationship where the following occur: I choose not to answer THRIVE Score: 2 TEDDY-7 AMB Questionnaire TEDDY-7 Date TEDDY - 7 assessed: 07/19/24 Source: Developed by Drs. Mitchel Merchant, Xiao Valencia, Oli Marcelino and colleagues, with an educational kathleen from [employer]. Review of Systems Const Details: As per HPI. Physical exam (Primary Care) Vital Signs: Last Vital Signs Pulse 74 04/30/25 11:17 Resp 18 04/30/25 11:17 BP 154/88 H 04/30/25 11:17 Pulse Ox 98 04/30/25 11:17 Oxygen Delivery Method Room Air 04/30/25 11:17 BMI result Body Mass Index 31.2 Tobacco/Smoking Status: Tobacco use Status Tobacco use date assessed 04/30/25 04/30/25 10:55 Patient Tobacco Use Status Never used Tobacco 04/30/25 10:55 e-Cigarette/Vaping Use Never Used 04/30/25 10:55 Thrive Assessment: Date of Thrive Assessment Date Thrive assessed 07/19/24 04/30/25 10:55 Currently or been in a relationship where the following occur: I choose not to answer Const Other: Pertinent findings are in BOLD GENERAL APPEARANCE NAD, activity normal for age, well developed/ well nourished, no cyanosis, pallor, or diaphoresis. EYES lids/conjunctiva normal. EARS/NOSE/THROAT Mucous membranes moist, nares normal, lips/teeth normal uvula midline without oral pharyngeal erythema, exudate or swelling TMs normal bilaterally. No lymphangitis/lymphedema. HEAD/NECK normocephalic atraumatic, no facial trauma, neck is supple. RESPIRATORY respiratory effort normal, speaks in full sentences, no tripod position, no accessory muscle use. Lungs clear to auscultation without rhonchi, wheezes, rales CARDIAC Regular rate and rhythm, no edema. ABDOMINAL Soft, ND/NT. No evidence of fluid wave. No pulsatile masses on exam, rebound tenderness, Bermudez sign or pain over Mcburney's point. MUSCLES/EXTREMITIES No abnormal range of motion, no swelling. Right knee tender to palpation. Right shoulder ROM limited due to pain. SKIN Warm, pink and dry. No rashes, dermatoses, petechiae or lesions. NEUROLOGICAL Speech is clear and appropriate. Normal level of consciousness. Gait and coordination are normal. 5/5 strength in all extremities. PSYCH Normal mood and affect. Judgement/competence is appropriate Coding Level of Care Code New Pt Level 4 (75827) Diagnoses Right knee pain, unspecified chronicity M25.561 Chronicity: unspecified Laterality: right Primary hypertension I10 Hypertension type: primary hypertension Gastroesophageal reflux disease, unspecified whether esophagitis present K21.9 Esophagitis presence: esophagitis presence not specified Tear of right rotator cuff, unspecified tear extent, unspecified whether traumatic M75.101 Rotator cuff tear extent: unspecified tear extent Rotator cuff tear trauma status: unspecified whether traumatic Constipation, unspecified constipation type K59.00 Constipation type: unspecified constipation type Time Spent (min) 45 Assessment & Plan Assessment & Plan (1) Knee pain: Code(s): M25.569 - Pain in unspecified knee Category: Medical Qualifiers: Chronicity: unspecified Laterality: right Qualified Code(s): M25.561 - Pain in right knee Plan: - Ordered an X-ray of the right knee to evaluate the pain. (2) Hypertension: Code(s): I10 - Essential (primary) hypertension Category: Medical Qualifiers: Hypertension type: primary hypertension Qualified Code(s): I10 - Essential (primary) hypertension Plan: - Refilled lisinopril 20 mg to be taken once daily. (3) GERD (gastroesophageal reflux disease): Code(s): K21.9 - Gastro-esophageal reflux disease without esophagitis Category: Medical Qualifiers: Esophagitis presence: esophagitis presence not specified Qualified Code(s): K21.9 - Gastro-esophageal reflux disease without esophagitis Plan: Continue Omeprazole 20 mg daily. Advised on avoiding triggers such as Dairy, red meat, and spicy food. (4) Right rotator cuff tear: Code(s): M75.101 - Unspecified rotator cuff tear or rupture of right shoulder, not specified as traumatic Category: Medical Qualifiers: Rotator cuff tear extent: unspecified tear extent Rotator cuff tear trauma status: unspecified whether traumatic Qualified Code(s): M75.101 - Unspecified rotator cuff tear or rupture of right shoulder, not specified as traumatic Plan: - Prescribed naproxen 500 mg to be taken twice a day for pain. - Advised to take omeprazole when taking naproxen. - Placed a referral to Orthopedic Surgery for further evaluation of shoulder pain and associated hand/finger numbness. (5) Constipation: Code(s): K59.00 - Constipation, unspecified Category: Medical Qualifiers: Constipation type: unspecified constipation type Qualified Code(s): K59.00 - Constipation, unspecified Plan: - Discontinued docusate. - Prescribed MiraLax to be taken along with Senna. - Counseled on dietary modifications, including a trial of avoiding dairy products for 1-2 weeks. - Educated that other foods like gluten, red meat, and sugars may also contribute to constipation. Plan As this was our first visit, I established care and reviewed the patient's medications and concerns. I explained the plan, which includes refilling prescriptions, ordering general labs with HIV and Hepatitis C screening, ordering an X-ray of the right knee, and placing a referral to orthopedics for the shoulder pain and hand numbness. We discussed medication changes for constipation, switching from docusate to MiraLAX, and I counseled the patient on dietary modifications, specifically a two-week trial of avoiding dairy, to manage constipation. I advised the patient to continue vitamin D, and I prescribed naproxen for pain, instructing the patient to take it with omeprazole. A follow-up appointment is scheduled in four months to review results and progress. Orders: Orders Comprehensive Met. Panel Today Z00.00 - Encounter for general adult medical examination without abnormal findings Lipid Panel Today Z00.00 - Encounter for general adult medical examination without abnormal findings TSH reflex Free T4 Today Z00.00 - Encounter for general adult medical examination without abnormal findings Hepatitis C Antibody Reflex Today Z00.00 - Encounter for general adult medical examination without abnormal findings XR knee RT 2V Today M25.569 - Pain in unspecified knee Complete Blood Count no Diff Today Z00.00 - Encounter for general adult medical examination without abnormal findings Hemoglobin A1c Today Z00.00 - Encounter for general adult medical examination without abnormal findings HIV Ab/Ag Today Z00.00 - Encounter for general adult medical examination without abnormal findings Referrals Orthopedics Referral M75.101 - Unspecified rotator cuff tear or rupture of right shoulder, not specified as traumatic Medications: New polyethylene glycol 3350 (Miralax) 17 grams PO DAILY PRN 238 grams 2RF constipation Changed From sennosides (senna) 8.6 mg PO BEDTIME 90 tabs 0RF for constipation K59.00 - Constipation, unspecified To sennosides (senna) 8.6 mg PO DAILY 90 tabs 3RF for constipation K59.00 - Constipation, unspecified Refilled naproxen (Naprosyn) 500 mg PO BID PRN 60 tabs 3RF pain Discontinued docusate sodium Discontinued Reason: Doctor's Order 100 mg PO BEDTIME 90 caps 3RF K59.00 - Constipation, unspecified
[2025-04-30 11:17] VITALS: BP 154/88; PULSE 74; RESP 18; O2SAT 98; BMI 31.2
== END 2025-04-30 11:59 | disposition home or self-care (01) ==
PROVIDERS: PCP Internal Medicine; Visit Provider Internal Medicine
DX: M25.561 Pain in right knee (principal); I10 Essential (primary) hypertension; K21.9 Gastro-esophageal reflux disease without esophagitis; M75.101 Unspecified rotator cuff tear or rupture of right shoulder, not specified as traumatic; K59.00 Constipation, unspecified

== ENCOUNTER → 2025-04-30 12:30 | Outpatient (BNV) | payer OTHER, SELFPAY | PROVIDERS: PCP Internal Medicine; Visit Provider Radiology Diagnostic Radiology | DX: M25.461 Effusion, right knee (principal); M17.11 Unilateral primary osteoarthritis, right knee; M76.891 Other specified enthesopathies of right lower limb, excluding foot | CPT/HCPCS: 73560 ==

== ENCOUNTER 2025-05-03 15:51 | Emergency (ER) | payer OTHER, SELFPAY ==
[2025-05-03 16:06] VITALS: BP 148/90; PULSE 82; RESP 18; TEMP 36.1; O2SAT 97; BMI 30.6
--- NOTE | 2025-05-03 16:13 | ED.DENTAL ---
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 Reports cracked tooth in this area. He has a dentist however has not contacted their office. Reports taking Advil with minimal improvement in pain. His last dose was 25 minutes [employer]. Denies fever, chills, difficulty swallowing, jaw pain, ear pain. MD Complaint: tooth pain Teeth map:  1. Onset (ago): week(s) (2) Duration: constant Severity: moderate Relieving factors: NSAIDs Context: history of dental caries and poor dental care Treatment prior to arrival: oral analgesic Related Data Previous Rx's ?Medication ?Instructions ?Recorded cholecalciferol (vitamin D3) 50 50 mcg PO DAILY #90 caps 07/10/24 mcg (2,000 unit) capsule lisinopril 20 mg tablet 20 mg PO DAILY #90 tabs 07/10/24 omeprazole 20 mg capsule,delayed 20 mg PO DAILY nocturnal gerd 30 04/21/25 release days #90 caps naproxen 500 mg tablet (Naprosyn) 500 mg PO BID PRN pain #60 tabs 04/30/25 polyethylene glycol 3350 17 17 g PO DAILY PRN constipation 04/30/25 gram/dose oral powder (Miralax) #238 grams sennosides 8.6 mg tablet (senna) 8.6 mg PO DAILY for constipation 04/30/25 #90 tabs amoxicillin 875 mg-potassium 1 tab PO BID 7 days #14 tabs 05/03/25 clavulanate 125 mg tablet ketorolac 10 mg tablet 10 mg PO Q8H PRN pain (scale score 05/03/25 4-6) 5 days #15 tabs Allergies Allergy/AdvReac Type Severity Reaction Status Date / Time No Known Allergies Allergy Verified 05/03/25 16:08 Review of Systems Review of Systems: Constitutional: No fever, chills, fatigue, night sweats, weight changes ENT/Mouth: No ear pain, hearing loss, nasal congestion, sinus pain, rhinorrhea, sore throat, +dental pain Eyes: No eye pain, swelling, redness, vision changes, discharge Cardio: No chest pain, palpitations, BLEDSOE, orthopnea, peripheral edema Pulm: No SOB, cough, sputum, wheezing, dyspnea, hemoptysis GI: No nausea, vomiting, hematemesis, abdominal pain, diarrhea, constipation, hematochezia, melena : No irregular bleeding, dysuria, frequency, urgency, hesitancy, hematuria, flank pain, urinary flow changes, urinary incontinence or retention MSK: No back pain, neck pain, joint pain, myalgias Skin: No lesions, rashes Neuro: No weakness, numbness, paresthesias, LOC, dizziness, headache Psych: No anxiety/panic, depression, SI/HI, AH/VH All other systems reviewed and are negative. [facility] Past Medical History Attestation statement: The following information was validated with the patient. Source: old records reviewed and nursing notes reviewed Medical History Hypertension Rotator cuff (capsule) sprain COVID-19 Alopecia Hypertension GERD (gastroesophageal reflux disease) Surgical History History of esophagogastroduodenoscopy (EGD) History of back surgery History of colonoscopy Family History Family History Father Family history of high blood pressure Hx of type 1 diabetes mellitus Mother Hx of multiple sclerosis Family history of high blood pressure Social History Social History Household Members: Significant Other Housing: House Alcohol intake: unknown Patient Tobacco Use Status: Never used Tobacco e-Cigarette/Vaping Use: Never Used Second Hand Smoke Exposure: No Advance Directives: No Advance Directives Information Provided: No Do you have a plan to hurt others: No Plan service: No Current occupational status: disabled Current occupational exposures/hazards: No Cognitive needs: No Hearing needs: No Vision needs: Yes (Glasses) Physical Exam Vital Signs: Vital Signs: Last Vital Signs Temp 97.0 F 05/03/25 16:36 Pulse 82 05/03/25 16:36 Resp 18 05/03/25 16:36 BP 148/90 H 05/03/25 16:36 Pulse Ox 97 05/03/25 16:36 O2 Del Method Room Air 05/03/25 16:36 BMI result Body Mass Index 30.6 Vital signs stable, afebrile. Const: General: cooperative, comfortable and no acute distress Orientation/consciousness: patient oriented x3 Limitations: no limitations HEENT: Other: + No facial edema. Tongue and lips wnl + multiple dental caries and poor dentition. left upper teeth #12-14 with localized periapical swelling to the buccal ginginva. No pointing. No active bleeding/ discharge. TTP. No palpable fluctuance. + No edema to buccal mucosa + Posterior oropharynx without erythema/edema. Uvula midline. Controlling secretions and speaking in complete sentences + No submandublar or submental LAD, no cervical LAD, no anterior neck swelling Head: Yes normal to inspection, Yes No palpable skull fracture present, Yes normocephalic and Yes atraumatic Ears: hearing grossly normal bilaterally, external ears normal, TM's normal bilaterally, EAC's normal, mastoids normal and no periauricular adenopathy Eyes: General: appearance normal, both eyes and all related structures Conjunctivae: conjunctivae normal Sclerae: sclerae normal Pupils: Equal, round and reactive pupils present Neck: Neck: Yes normal visual inspection and Yes no lymphadenopathy Resp: Effort & Inspection: normal respiratory effort and no stridor Auscultation: clear to auscultation bilaterally Cardio: Rate: regular rate Rhythm: regular rhythm Skin: General skin exam: no rashes or lesions noted Neuro: General: patient oriented x3 and gait normal Cranial nerves: Yes Equal, round and reactive pupils present Course Course Course Narrative: Patient noted to have dental infection. There is no evidence of abscess that warrants drainage at this time. Patient will be discharged home on augmentin to ensure there is no worsening infection for follow-up with dentist. Patient advised to follow up with dentist this week. A referral has been provided. Patient has remained stable throughout ED visit today. I discussed worrisome signs and symptoms and when to return to the ED. All questions answered at this time. Patient is agreeable with disposition and stable for discharge. Medical Decision Making Medical Decision Making MDM Narrative: 60 year old male presents to the ED today for evaluation of left upper dental pain x2 weeks. patient is hypertensive, vitals are otherwise wnl. on exam, multiple dental caries and poor dentition. left upper teeth #12-14 with localized periapical swelling to the buccal ginginva. No pointing. No active bleeding/ discharge. TTP. No palpable fluctuance. Clinical concern for dental/ periapical abscess/infection. Unlikely mono, herpes, sialadenitis, sialolithiasis, [employer], retropharyngeal abscess, deep neck infection, osteomyelitis, facial cellulitis/ abscess, lymphoma, ludwigs angina. Plan for dispo home with antibiotics. Differential Diagnosis Differential Diagnoses: The differential diagnosis associated with the presentation includes as above. Admission/Observation Not indicated. Tests considered The following testing was considered but not selected: I considered obtaining a CT of the soft tissues neck however these is no evidence of ludwigs angina or concern for deep tissue infection. Not warranted at this time. Prescription Management I considered prescription management with: Pain Medication and Antibiotic Social Determinants Patient?s care significantly limited by Social Determinants of Health including: Other Social Determinant of Health Critical Care Time Critical Care Time Critical Care Time: No Discharge Plan Discharge Clinical Impression: Toothache Patient Disposition: Home, Self-Care Instructions: Toothache (ED) Additional Instructions: You were evaluated in ED today for dental pain. You have a dental infection. Augmentin is an antibiotic that has been sent to your pharmacy for treatment. Take this as prescribed and do not skip any doses. Take this to completion or the infection may persist or worsen. On Augmentin, softer bowel movements are to be expected. Call your provider if you move your bowels more than 4 times a day, your bowel movements are almost all liquid, or you get a rash.? Take tylenol at home as needed for pain. Toradol is a pain medication. Do not take this with other nsaids such as motrin/advil/ibuprofen/naproxen as this can cause increased risk of gi bleeding. YOU NEED TO FOLLOW UP WITH A DENTIST. You have been provided with a referral to [facility]. They are currently taking new clients. Call them to make an appointment. They will not call you. Return with new or worsening symptoms. In the case of an emergency call [phone]. [facility]: [phone] [id number] [facility] [id number] Prescriptions: New amoxicillin-pot clavulanate 875-125 mg tablet 1 tab PO BID 7 Days Qty: 14 0RF ketorolac 10 mg tablet 10 mg PO Q8H PRN (Reason: pain (scale score 4-6)) 5 Days Qty: 15 0RF Rx Instructions: maximum total duration of 5 days from all oral, intranasal, or parenteral formulations No Action cholecalciferol (vitamin D3) 50 mcg (2,000 unit) capsule 50 mcg PO DAILY Qty: 90 0RF lisinopril 20 mg tablet 20 mg PO DAILY Qty: 90 8RF omeprazole 20 mg capsule,delayed release(DR/EC) 20 mg PO DAILY MDD 2 30 Days Qty: 90 2RF polyethylene glycol 3350 [Miralax] 17 gram/dose powder 17 g PO DAILY PRN (Reason: constipation) Qty: 238 2RF sennosides [senna] 8.6 mg tablet 8.6 mg PO DAILY Qty: 90 3RF naproxen [Naprosyn] 500 mg tablet 500 mg PO BID PRN (Reason: pain) Qty: 60 3RF Interventions: ED Discharge Assessment Last Done: 05/03/25 16:36 Discharge Date/Time: 05/03/25 16:36 Print Language: [place]
[2025-05-03 16:36] VITALS: BP 148/90; PULSE 82; RESP 18; TEMP 36.1; O2SAT 97
== END 2025-05-03 16:36 | disposition home or self-care (01) ==
PROVIDERS: Emergency Provider Emergency Medicine; PCP Internal Medicine
DX: K08.89 Other specified disorders of teeth and supporting structures (principal)
CPT/HCPCS: 99282; 99283